=== PATIENT | female | born 1980 | race American Indian/Alaskan Native ===

== ENCOUNTER 2022-01-09 09:03 | Emergency (ER) | payer SELFPAY ==
[2022-01-09] MEDS ORDERED: SODIUM CHLORIDE 0.9% 1000 ML 1,000 ML IV ONE (09:50)
[2022-01-09] MEDS ORDERED: FAMOTIDINE 20 MG/2 ML INJ IV ONE (09:50)
[2022-01-09] MEDS ORDERED: ONDANSETRON 4 MG/2 ML INJ IV ONE (09:50)
[2022-01-09] MEDS ORDERED: diphenhydrAMINE 50 MG/ML VIAL IV ONE (09:51)
[2022-01-09] MEDS ORDERED: DICYCLOMINE 20 MG TAB PO ONE (09:51)
[2022-01-09 10:58] LABS: Basophils % (Auto) 0.6 % (0.0-1.8); Eosinophils # (Auto) 0.4 K/mm3 (0.0-0.4); Eosinophils % (Auto) 4.5 % (0.0-4.3); Hematocrit 33.9 % (30.3-42.9); Hemoglobin 10.4 gm/dl (10.1-14.3); Lymphocytes # (Auto) 0.9 K/mm3 (1.2-5.4); Lymphocytes % (Auto) 11.7 % (13.4-35.0); Mean Corpuscular HGB Conc 31 % (30-34); Mean Corpuscular Volume 82 fl (79-97); Monocytes # (Auto) 0.4 K/mm3 (0.0-0.8); Monocytes % (Auto) 4.5 % (0.0-7.3); Platelet Count 357 K/mm3 (140-440); Red Blood Count 4.15 M/mm3 (3.65-5.03)
[2022-01-09] MEDS ORDERED: hydrALAZINE 20 MG/1 ML INJ IV ONE (11:05)
[2022-01-09 11:07] LABS: Red Cell Distribution Width 23.3 % (13.2-15.2)
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
[2022-01-09 11:21] LABS: Bilirubin,Urine NEG (Negative); Blood,Urine SM (Negative); Color,Urine Yellow (Yellow); Urobilinogen,Urine < 2.0 mg/dL (<2.0)
[2022-01-09 11:34] LABS: Bacteria,Urine 1+ /HPF (Negative)
[2022-01-09 11:35] LABS: Protein,Urine >500 mg/dL (Negative)
[2022-01-09 11:41] LABS: Alanine Aminotransferase 22 units/L (7-56); Albumin 3.7 g/dL (3.9-5); BUN/Creatinine Ratio 37; Blood Urea Nitrogen 26 mg/dL (7-17); Calcium 8.7 mg/dL (8.4-10.2); Hemolysis Index 3
[2022-01-09] MEDS ORDERED: cloNIDine 0.2 MG TAB PO ONE (11:41)
--- NOTE | 2022-01-09 12:59 | Cat Scan Report ---
CT HEAD WITHOUT CONTRAST INDICATION / CLINICAL INFORMATION: headache with HTN. TECHNIQUE: All CT scans at this location are performed using CT dose reduction for ALARA by means of automated exposure control. COMPARISON: None available. FINDINGS: HEMORRHAGE: None. EXTRA-AXIAL SPACES: Normal in size and morphology for the patient's age. VENTRICULAR SYSTEM: Normal in size and morphology for the patient's age. CEREBRAL PARENCHYMA: No significant abnormality. No acute territorial infarct. MIDLINE SHIFT / HERNIATION: None. CEREBELLUM / BRAINSTEM: No significant abnormality. ORBITS: Normal as visualized SOFT TISSUES: No significant abnormality. SKULL: No significant abnormality. PARANASAL SINUSES / MASTOID AIR CELLS: There is opacification of the paranasal sinuses. ADDITIONAL FINDINGS: None. IMPRESSION: 1. No acute intracranial abnormality. Signer Name: Matti Aviles DO Signed: 01/09/2022 12:54 PM Workstation Name: [id number]
--- NOTE | 2022-01-09 13:11 | Cat Scan Report ---
CT CHEST WITHOUT CONTRAST INDICATION / CLINICAL INFORMATION: abnormal CT of abd. TECHNIQUE: Axial CT images were obtained through the chest without contrast. All CT scans at this loc ation are performed using CT dose reduction for ALARA by means of automated exposure control. COMPARISON: None available. FINDINGS: HEART: Cardiomegaly CORONARY ARTERY CALCIFICATION: None. THORACIC AORTA: No significant abnormality. MEDIASTINUM / SAMSON: No significant abnormality. PLEURA: There is a moderate right pleural effusion. No pneumothorax. LUNGS: There is prominence of the secondary lobules suggesting pulmonary edema. There is mild cephali zation of the pulmonary vasculature. There is atelectasis within the right lung bases. There are scat tered groundglass opacities, likely representing atelectasis versus pulmonary edema. ADDITIONAL FINDINGS: None. SKELETAL SYSTEM: Scattered degeneration. IMPRESSION: 1. Right pleural effusion, cardiomegaly and prominence of the interstitium suggesting cardiogenic pul monary edema. CT ABDOMEN AND PELVIS WITH CONTRAST INDICATION / CLINICAL INFORMATION: abnormal CT of abd. TECHNIQUE: Axial CT images were obtained through the abdomen and pelvis after 100 cc of Omnipaque [address] scans at this location are performed using CT dose reduction for ALARA by means of automated exposure control. COMPARISON: None available. FINDINGS: AORTA / ARTERIES: Moderate atherosclerotic calcification without acute abnormality. IVC / VEINS: No significant abnormality. LYMPH NODES: No significant adenopathy. COLON: No significant abnormality. APPENDIX: No significant abnormality. STOMACH / SMALL BOWEL: No significant abnormality. PERITONEUM: Small amount of free fluid throughout the abdomen. No free air. No fluid collection. LIVER: Along the peripheral right lateral lobe there is a nonmass-like area of decreased attenuation which either represents a focus of hepatic steatosis versus a transient hepatic attenuation differenc e. GALLBLADDER: No significant abnormality. BILE DUCTS: No significant abnormality. PANCREAS: No significant abnormality. SPLEEN: No significant abnormality. ADRENALS: No significant abnormality. RIGHT KIDNEY / URETER: No significant abnormality. LEFT KIDNEY / URETER: No significant abnormality. URINARY BLADDER: No significant abnormality. REPRODUCTIVE ORGANS: No significant abnormality. SKELETAL SYSTEM: Scattered degeneration ADDITIONAL FINDINGS: There is soft tissue edema scattered throughout the visualized soft tissues. IMPRESSION: 1. Small intrahepatic ascites with soft tissue edema throughout the visualized soft tissues as well a s right pleural effusion. This suggests anasarca. 2. Moderate calcific atherosclerosis given the patient's age. Please see above for CT of the chest. Signer Name: Matti Aviles DO Signed: 01/09/2022 1:07 PM Workstation Name: [id number]
[2022-01-09] MEDS ORDERED: NITROGLYCERIN 0.4 MG TAB SUBL SL ONE (13:15)
[2022-01-09] MEDS ORDERED: FUROSEMIDE 40 MG/4 ML INJ IV ONE (13:17)
[2022-01-09 14:56] VITALS: BP 142/90
== END 2022-01-09 14:56 | disposition home or self-care (01) ==
LOC: ED 09:03
DX: I10 Essential (primary) hypertension (principal); I50.9 Heart failure, unspecified; R10.9 Unspecified abdominal pain; R11.2 Nausea with vomiting, unspecified; E11.8 Type 2 diabetes mellitus with unspecified complications
CPT/HCPCS: 36415; 70450; 71250; 74177; 80053; 81001; 83690; 84703; 85025; 96361; 96374; 96375; 99284; J1200; J1940; J2405; J3490; J7030; Q9967; Q0162

== ENCOUNTER 2022-02-16 10:21 | Inpatient (IN) | payer SELFPAY ==
--- NOTE | 2022-02-16 10:51 | Event Note ---
ED Screening Note ED Screening Note: co sob (and neuropathy) pmh htn dm chf not immunized for covid meds creg lasox 70/30 lisinopril cant recall others This initial assessment/diagnostic orders/clinical plan/treatment(s) is/are subject to change based on patients health status, clinical progression and re- assessment by fellow clinical providers in the ED. Further treatment and workup at subsequent clinical providers discretion. Patient/guardian urged not to elope from the ED as their condition may be serious if not clinically assessed and managed. Initial orders include: ro acute chf exac/ uri
--- NOTE | 2022-02-16 11:13 | XRay Report ---
CHEST 2 VIEWS INDICATION / CLINICAL INFORMATION: sob. COMPARISON: CT chest without contrast from 01/09/2022 FINDINGS: SUPPORT DEVICES: None. HEART / MEDIASTINUM: Stable. LUNGS / PLEURA: There are nonspecific right middle/lower lobe opacities. The lungs are otherwise court r. No significant pleural effusion. No pneumothorax. ADDITIONAL FINDINGS: No significant additional findings. IMPRESSION: 1. Nonspecific right basilar opacities could represent atelectasis or pneumonia. 2. Stable cardiomegaly without other significant interval changes. Signer Name: Reji Worrell MD Signed: 02/16/2022 11:09 AM Workstation Name: [id number]
[2022-02-16 11:53] LABS: Alanine Aminotransferase 14 units/L (7-56); Albumin 3.3 g/dL (3.9-5); BUN/Creatinine Ratio 23; Blood Urea Nitrogen 23 mg/dL (7-17); Calcium 8.8 mg/dL (8.4-10.2); Hemolysis Index 8
[2022-02-16 12:10] LABS: Mean Corpuscular HGB Conc 32 % (30-34); Mean Corpuscular Volume 81 fl (79-97); Platelet Count 373 K/mm3 (140-440); Red Blood Count 3.48 M/mm3 (3.65-5.03); Red Cell Distribution Width 18.7 % (13.2-15.2)
[2022-02-16 12:20] LABS: ABG Base Excess -5.2 mmol/L (-2.0-3.0); ABG HCO3 18.5 mmol/L (20.0-26.0); ABG Methemoglobin 0.4 % (0.0-1.5); ABG Oxygen Saturation 97.6 % (95.0-99.0); ABG PCO2 29.9 mm Hg; ABG PH 7.408 pH Units (7.350-7.450); ABG PO2 96.5 mm Hg (80.0-90.0)
[2022-02-16 13:40] LABS: Bilirubin,Urine NEG (Negative); Blood,Urine NEG (Negative); Color,Urine Yellow (Yellow); Mucus,Urine FEW /HPF; Urobilinogen,Urine < 2.0 mg/dL (<2.0)
[2022-02-16 14:08] LABS: Protein,Urine >500 mg/dL (Negative)
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
[2022-02-16] MEDS ORDERED: oxyCODONE /ACETAMINOPHEN 5-325MG TAB PO PRN (17:48)
[2022-02-16] MEDS ORDERED: ONDANSETRON 4 MG/2 ML INJ IV PRN (17:48)
[2022-02-16] MEDS ORDERED: POTASSIUM CHLORIDE ER 20 MEQ TAB PO ONE (17:52)
[2022-02-16] MEDS: cefTRIAXone/NS 2 GM/100 ML 2 GM/100 ML BAG IV SCH (20:50)
[2022-02-16] MEDS: FUROSEMIDE 40 MG/4 ML INJ IV SCH (20:50)
[2022-02-16] MEDS: ACETAMINOPHEN 325 MG TAB PO PRN (20:55)
[2022-02-16] MEDS: LISINOPRIL 20 MG TAB PO SCH (23:13)
[2022-02-16] MEDS: HEPARIN 5,000 UNIT/1 ML VIAL SUB-Q SCH (23:14)
[2022-02-16] MEDS: FAMOTIDINE 20 MG TAB PO SCH (23:14)
[2022-02-16] MEDS: AZITHROMYCIN/NS 500 MG/250 ML 500 MG/250 ML BAG IV SCH (23:15)
[2022-02-16] MEDS ORDERED: traZODone 50 MG TAB PO ONE (23:40)
[2022-02-16] MEDS: ONDANSETRON 4 MG/2 ML INJ IV PRN (23:43)
[2022-02-17] MEDS: FUROSEMIDE 40 MG/4 ML INJ IV SCH ×2 (05:53→17:17)
[2022-02-17] MEDS: ACETAMINOPHEN 325 MG TAB PO PRN (07:41)
[2022-02-17] MEDS: INSULIN LISPRO 100 UNIT/ML SUB-Q SCH ×4 (08:01→21:48)
[2022-02-17] MEDS: MORPHINE 2 MG/1 ML INJ IV PRN ×2 (09:57→17:36)
[2022-02-17] MEDS: HEPARIN 5,000 UNIT/1 ML VIAL SUB-Q SCH ×2 (10:00→21:44)
[2022-02-17] MEDS: FAMOTIDINE 20 MG TAB PO SCH ×2 (10:01→21:44)
[2022-02-17] MEDS: LISINOPRIL 20 MG TAB PO SCH ×2 (10:01→21:44)
[2022-02-17] MEDS: cefTRIAXone/NS 2 GM/100 ML 2 GM/100 ML BAG IV SCH (10:01)
[2022-02-17] MEDS: SPIRONOLACTONE 25 MG TAB PO SCH (10:01)
--- NOTE | 2022-02-17 10:34 | Electrocardiograph Report ---
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
--- NOTE | 2022-02-17 13:35 | Progress Note ---
Assessment and Plan Assessment and plan: #Acute diastolic heart failure (newly diagnosed) - Continue CHF exacerbation protocol: Telemetry, Strict I/O, monitor urine output every shift, daily weights, afterload reduction, low-sodium diet, and fluid restriction of approximately 1.5 mL/day - Supplemental oxygen: None - ProBNP on admission: 1864 Continue IV Lasix 40 mg twice daily and Aldactone 25 mg daily - Cardiology consulted; pending recommendations - TTE (02/17/2022) revealing EF 50-55%, normal LV size, normal LV systolic function, mild concentric LVH, severe diastolic dysfunction, dilated RV, normal RV function, mildly dilated LA, normal RA, RSVP is 46 mmHg. - Continue to monitor #Possible right lower lobe pneumonia Low clinical suspicion for pneumonia. Chest x-ray remarkable for possible pneumonia versus atelectasis of lower lobes. Chest x-ray also revealing increased cardiac silhouette with increased interstitial markings consistent with pulmonary edema. Pending procalcitonin. Continue Rocephin 2 g daily and azithromycin 500 mg daily, but discontinue if procalcitonin is unremarkable. Coronavirus PCR pending. #Chronic uncontrolled hypertension - home medications: Coreg 25 mg twice daily, p.o. 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 Patient expresses understanding. - Time: +10 min #Advanced care planning -Disease education conducted, care plan discussed, diagnoses discussed, prognosis discussed, and patient acknowledges understanding with care plan -Time: +30 min Disposition Plan: Continue medical management Total Time Spent with Patient (Minutes): 45 minutes History Interval history: No acute events overnight. Hospitalist Physical - Constitutional Vitals: Temp Pulse Resp BP Pulse Ox 97.5 F L 74 18 150/63 96 02/17/22 07:59 02/17/22 07:59 02/17/22 07:59 02/17/22 07:59 02/17/22 07:59 General appearance: Present: no acute distress, well-nourished, other (Tearful during discussion) - EENT Eyes: Present: PERRL, EOM intact ENT: hearing intact, clear oral mucosa, dentition normal - Neck Neck: Present: supple, normal ROM - Respiratory Respiratory effort: normal Respiratory: bilateral: CTA - Cardiovascular Rhythm: regular Heart Sounds: Present: S1 & S2 - Extremities Extremities: pulses intact, pulses symmetrical, normal temperature, normal color, Full ROM Extremity abnormal: edema (1+ pitting edema bilateral lower extremities to mid marquis) Peripheral Pulses: within normal limits - Abdominal General gastrointestinal: soft, non-tender, non-distended, normal bowel sounds - Integumentary Integumentary: Present: clear, warm, dry - Psychiatric Psychiatric: appropriate mood/affect, memory intact, cooperative, other (Limited insight regarding need for lifestyle changes/dietary changes) - Neurologic Neurologic: CNII-XII intact, moves all extremities - Allied Health Allied health notes reviewed: nursing HEART Score - HEART Score Age: < 45 Risk factors: 1-2 risk factors Troponin: Troponin T < 0.010 ng/mL (0.00-0.029) 02/16/22 15:58 - Critical Actions Critical Actions: 4-6 pts:12-16.6% risk of adverse cardiac event. Should be admitted Results - Labs CBC & Chem 7: 02/16/22 11:09 02/16/22 11:09 Labs: Laboratory Last Values WBC 8.0 K/mm3 (4.5-11.0) 02/16/22 11:09 RBC 3.48 M/mm3 (3.65-5.03) L 02/16/22 11:09 Hgb 9.0 gm/dl (10.1-14.3) L 02/16/22 11:09 Hct 28.0 % (30.3-42.9) L 02/16/22 11:09 MCV 81 fl (79-97) 02/16/22 11:09 MCH 26 pg (28-32) L 02/16/22 11:09 MCHC 32 % (30-34) 02/16/22 11:09 RDW 18.7 % (13.2-15.2) H 02/16/22 11:09 Plt Count 373 K/mm3 (140-440) 02/16/22 11:09 Lymph % (Auto) Exchange Specialist 02/16/22 11:09 Sac % (Auto) Exchange Specialist 02/16/22 11:09 Eos % (Auto) Exchange Specialist 02/16/22 11:09 Baso % (Auto) Exchange Specialist 02/16/22 11:09 Lymph # (Auto) Exchange Specialist 02/16/22 11:09 Sac # (Auto) Exchange Specialist 02/16/22 11:09 Eos # (Auto) Exchange Specialist 02/16/22 11:09 Baso # (Auto) Exchange Specialist 02/16/22 11:09 Seg Neutrophils % Exchange Specialist 02/16/22 11:09 Seg Neutrophils # Exchange Specialist 02/16/22 11:09 ABG pH 7.408 pH Units (7.350-7.450) 02/16/22 12:06 ABG pCO2 29.9 mm Hg 02/16/22 12:06 ABG pO2 96.5 mm Hg (80.0-90.0) H 02/16/22 12:06 ABG HCO3 18.5 mmol/L (20.0-26.0) L 02/16/22 12:06 ABG O2 Saturation 97.6 % (95.0-99.0) 02/16/22 12:06 ABG O2 Content 14.1 (0.0-44) 02/16/22 12:06 ABG Base Excess -5.2 mmol/L (-2.0-3.0) L 02/16/22 12:06 ABG Hemoglobin 10.4 gm/dl (12.0-16.0) L 02/16/22 12:06 ABG Carboxyhemoglobin 1.7 % (0.0-5.0) 02/16/22 12:06 ABG Methemoglobin 0.4 % (0.0-1.5) 02/16/22 12:06 Oxyhemoglobin 95.5 % (95.0-99.0) 02/16/22 12:06 FiO2 21 % 02/16/22 12:06 Sodium 139 mmol/L (137-145) 02/16/22 11:09 Potassium 4.5 mmol/L (3.6-5.0) 02/16/22 11:09 Chloride 110.0 mmol/L (98-107) H 02/16/22 11:09 Carbon Dioxide 18 mmol/L (22-30) L 02/16/22 11:09 Anion Gap 16 mmol/L 02/16/22 11:09 BUN 23 mg/dL (7-17) H 02/16/22 11:09 Creatinine 1.0 mg/dL (0.6-1.2) 02/16/22 11:09 Estimated GFR > 60 ml/min 02/16/22 11:09 BUN/Creatinine Ratio 23 % 02/16/22 11:09 Glucose 113 mg/dL (65-100) H 02/16/22 11:09 POC Glucose 192 mg/dL (70-105) H 02/17/22 11:55 Calcium 8.8 mg/dL (8.4-10.2) 02/16/22 11:09 Total Bilirubin < 0.20 mg/dL (0.1-1.2) 02/16/22 11:09 AST 17 units/L (5-40) 02/16/22 11:09 ALT 14 units/L (7-56) 02/16/22 11:09 Alkaline Phosphatase 69 units/L (35-129) 02/16/22 11:09 Troponin T < 0.010 ng/mL (0.00-0.029) 02/16/22 15:58 NT-Pro-B Natriuret Pep 1865 pg/mL (0-450) H 02/16/22 11:09 Total Protein 7.4 g/dL (6.3-8.2) 02/16/22 11:09 Albumin 3.3 g/dL (3.9-5) L 02/16/22 11:09 Albumin/Globulin Ratio 0.8 % 02/16/22 11:09 Urine Color Yellow (Yellow) 02/16/22 13:20 Urine Turbidity Clear (Clear) 02/16/22 13:20 Urine pH 5.0 (5.0-7.0) 02/16/22 13:20 Ur Specific [place] 1.018 (1.003-1.030) 02/16/22 13:20 Urine Protein >500 mg/dL (Negative) 02/16/22 13:20 Urine Glucose (UA) Neg mg/dL (Negative) 02/16/22 13:20 Urine Ketones Neg mg/dL (Negative) 02/16/22 13:20 Urine Blood Neg (Negative) 02/16/22 13:20 Urine Nitrite Neg (Negative) 02/16/22 13:20 Urine Bilirubin Neg (Negative) 02/16/22 13:20 Urine Urobilinogen < 2.0 mg/dL (<2.0) 02/16/22 13:20 Ur Leukocyte Esterase Neg (Negative) 02/16/22 13:20 Urine WBC (Auto) 2.0 /HPF (0.0-6.0) 02/16/22 13:20 Urine RBC (Auto) 4.0 /HPF (0.0-6.0) 02/16/22 13:20 U Epithel Cells (Auto) 1.0 /HPF (0-13.0) 02/16/22 13:20 Urine Mucus Few /HPF 02/16/22 13:20 Mariee/IV: Voiding Method Toilet Active Medications - Current Medications Current Medications: Generic Name Dose Route Start Last Admin Trade Name Freq PRN Reason Stop Dose Admin Acetaminophen 650 mg 02/16/22 17:48 02/17/22 07:41 Acetaminophen 325 Mg Tab PO 650 mg Q4H PRN Administration Pain MILD(1-3)/Fever >100.5/LANDIS Famotidine 20 mg 02/16/22 22:00 02/17/22 10:01 Famotidine 20 Mg Tab PO 20 mg BID VIRAJ Administration Furosemide 40 mg 02/16/22 18:00 02/17/22 05:53 Furosemide 40 Mg/4 Ml Inj IV 40 mg 0600,1800 VIRAJ Administration Gabapentin 300 mg 02/17/22 14:00 Gabapentin 300 Mg Cap PO TID VIRAJ Heparin Sodium (Porcine) 5,000 unit 02/16/22 22:00 02/17/22 10:00 Heparin 5,000 Unit/1 Ml Vial SUB-Q 5,000 unit Q12HR VIRAJ Administration Azithromycin 500 mg in 250 mls @ 250 mls/hr 02/16/22 18:00 02/16/22 23:15 Zithromax/Ns IV 250 mls/hr Q24H VIRAJ Administration Ceftriaxone Sodium 2 gm in 100 mls @ 200 mls/hr 02/16/22 18:00 02/17/22 10:01 Rocephin/Ns 2 Gm/100 Ml IV 200 mls/hr Q24HR VIRAJ Administration Protocol Insulin Human Lispro 0 unit 02/17/22 07:30 02/17/22 08:01 Insulin Lispro 100 Unit/Ml SUB-Q 2 unit ACHS VIRAJ Administration Protocol Lisinopril 20 mg 02/16/22 22:00 02/17/22 10:01 Lisinopril 20 Mg Tab PO 20 mg BID VIRAJ Administration Metoclopramide HCl 10 mg 02/16/22 17:48 Metoclopramide 10 Mg/2 Ml Inj IV Q6H PRN Nausea And Vomiting Morphine Sulfate 2 mg 02/16/22 17:48 02/17/22 09:57 Morphine 2 Mg/1 Ml Inj IV 2 mg Q4H PRN Administration Pain, Moderate (4-6) Ondansetron HCl 4 mg 02/16/22 14:05 02/16/22 23:43 Ondansetron 4 Mg/2 Ml Inj IV 4 mg Q8H PRN Administration Nausea And Vomiting Oxycodone/Acetaminophen 1 tab 02/16/22 17:48 02/16/22 18:28 Oxycodone /Acetaminophen 5-325mg Tab PO 1 tab Q6H PRN Administration Pain, Moderate (4-6) Sodium Chloride 10 ml 02/16/22 22:00 02/17/22 10:01 Sodium Chloride 0.9% 10 Ml Flush Syringe IV 10 ml BID VIRAJ Administration Sodium Chloride 10 ml 02/16/22 14:05 Sodium Chloride 0.9% 10 Ml Flush Syringe IV PRN PRN LINE FLUSH Sodium Chloride 10 ml 02/16/22 22:00 02/16/22 23:15 Sodium Chloride 0.9% 10 Ml Flush Syringe IV 10 ml BID VIRAJ Administration Sodium Chloride 10 ml 02/16/22 17:48 Sodium Chloride 0.9% 10 Ml Flush Syringe IV PRN PRN LINE FLUSH Spironolactone 25 mg 02/17/22 10:00 02/17/22 10:01 Spironolactone 25 Mg Tab PO 25 mg QDAY VIRAJ Administration
[2022-02-17] MEDS: GABAPENTIN 300 MG CAP PO SCH ×2 (13:42→21:44)
--- NOTE | 2022-02-17 14:51 | Consultation ---
History of Present Illness Consult date: 02/17/22 Requesting physician: BEKA FORTUNE Consult reason: congestive heart failure History of present illness: Patient is a 41-year-old female with a past medical history of hypertension and diabetes who presented to the ED on 02/16/2022 for complaint of progressively worsening shortness of breath x2 weeks. Patient reports that over the last 2 weeks she has had worsening dyspnea on exertion, orthopnea, and PND. Patient denies any complaints of chest pain, diaphoresis, palpitations, or lightheadedness. Patient reports that normally she can walk around without any difficulties or feeling short of breath however that over the last 2 weeks she is unable to take more than a few steps without becoming short of breath at home. Patient reports that she has had improvement with the symptoms in the hospital when giving her Lasix. Of note patient found to have elevated BNP, and chest x-ray possible atelectasis or pneumonia. Patient is previously unknown to our practice. Cardiology is consulted for new onset heart failure Past History Past Medical History: diabetes, hypertension Past Surgical History: Other (Patient reports prior left arm surgery and prior gastric surgery) Social history: other (History of cocaine use) Family history: diabetes Medications and Allergies Allergies Allergy/AdvReac Type Severity Reaction Status Date / Time acetaminophen [From Lortab] Allergy Anaphylaxis Verified 01/09/22 09:21 hydrocodone [From Lortab] Allergy Anaphylaxis Verified 01/09/22 09:21 Home Medications Medication Instructions Recorded Confirmed Last Taken Type Furosemide [Lasix TAB] 40 mg PO QDAY #30 tablet 01/09/22 02/16/22 1 Day Ago Rx ~02/15/22 lisinopriL [Lisinopril] 20 mg PO BID #60 tab 01/09/22 02/16/22 1 Day Ago Rx ~02/15/22 Gabapentin 1 tab PO TID 02/16/22 02/16/22 1 Day Ago History ~02/15/22 HumuLIN 70/30 Kwikpen 15 unit SQ BID 02/16/22 02/16/22 1 Day Ago History ~02/15/22 carvediloL [Coreg] 25 mg PO BID 02/16/22 02/16/22 1 Day Ago History ~02/15/22 traZODone [Desyrel] 50 mg PO QHS 02/16/22 02/16/22 1 Day Ago History ~02/15/22 Active Meds: Active Medications Acetaminophen (Acetaminophen 325 Mg Tab) 650 mg PO Q4H PRN PRN Reason: Pain MILD(1-3)/Fever >100.5/LANDIS Last Admin: 02/17/22 07:41 Dose: 650 mg Famotidine (Famotidine 20 Mg Tab) 20 mg PO BID [facility] Last Admin: 02/17/22 10:01 Dose: 20 mg Furosemide (Furosemide 40 Mg/4 Ml Inj) 40 mg IV 0600,1800 [facility] Last Admin: 02/17/22 05:53 Dose: 40 mg Gabapentin (Gabapentin 300 Mg Cap) 300 mg PO TID [facility] Last Admin: 02/17/22 13:42 Dose: 300 mg Heparin Sodium (Porcine) (Heparin 5,000 Unit/1 Ml Vial) 5,000 unit SUB-Q Q12HR [facility] Last Admin: 02/17/22 10:00 Dose: 5,000 unit Azithromycin (Zithromax/Ns) 500 mg in 250 mls @ 250 mls/hr IV Q24H [facility] Last Admin: 02/16/22 23:15 Dose: 250 mls/hr Ceftriaxone Sodium (Rocephin/Ns 2 Gm/100 Ml) 2 gm in 100 mls @ 200 mls/hr IV Q24HR [facility]; Protocol Last Admin: 02/17/22 10:01 Dose: 200 mls/hr Insulin Human Lispro (Insulin Lispro 100 Unit/Ml) 0 unit SUB-Q ACHS [facility]; Protocol Last Admin: 02/17/22 11:42 Dose: 2 unit Lisinopril (Lisinopril 20 Mg Tab) 20 mg PO BID [facility] Last Admin: 02/17/22 10:01 Dose: 20 mg Metoclopramide HCl (Metoclopramide 10 Mg/2 Ml Inj) 10 mg IV Q6H PRN PRN Reason: Nausea And Vomiting Metoprolol Tartrate (Metoprolol Tartrate 25 Mg Tab) 12.5 mg PO BID [facility] Morphine Sulfate (Morphine 2 Mg/1 Ml Inj) 2 mg IV Q4H PRN PRN Reason: Pain, Moderate (4-6) Last Admin: 02/17/22 09:57 Dose: 2 mg Ondansetron HCl (Ondansetron 4 Mg/2 Ml Inj) 4 mg IV Q8H PRN PRN Reason: Nausea And Vomiting Last Admin: 02/16/22 23:43 Dose: 4 mg Oxycodone/Acetaminophen (Oxycodone /Acetaminophen 5-325mg Tab) 1 tab PO Q6H PRN PRN Reason: Pain, Moderate (4-6) Last Admin: 02/16/22 18:28 Dose: 1 tab Sodium Chloride (Sodium Chloride 0.9% 10 Ml Flush Syringe) 10 ml IV BID [facility] Last Admin: 02/17/22 10:01 Dose: 10 ml Sodium Chloride (Sodium Chloride 0.9% 10 Ml Flush Syringe) 10 ml IV PRN PRN PRN Reason: LINE FLUSH Sodium Chloride (Sodium Chloride 0.9% 10 Ml Flush Syringe) 10 ml IV BID [facility] Last Admin: 02/16/22 23:15 Dose: 10 ml Sodium Chloride (Sodium Chloride 0.9% 10 Ml Flush Syringe) 10 ml IV PRN PRN PRN Reason: LINE FLUSH Spironolactone (Spironolactone 25 Mg Tab) 25 mg PO QDAY [facility] Last Admin: 02/17/22 10:01 Dose: 25 mg Review of Systems Constitutional: no weight loss, no weight gain, no fever, no chills Ears, nose, mouth and throat: no sinus pressure, no sinus pain Cardiovascular: palpitations, shortness of breath, dyspnea on exertion, no chest pain, no rapid/irregular heart beat, no syncope Respiratory: shortness of breath, dyspnea on exertion Gastrointestinal: no abdominal pain, no nausea, no vomiting Musculoskeletal: no neck stiffness, no neck pain, no shooting arm pain Integumentary: no rash, no pruritis, no redness Neurological: no head injury, no transient paralysis Psychiatric: no anxiety, no memory loss Endocrine: no cold intolerance, no heat intolerance Hematologic/Lymphatic: no easy bruising, no easy bleeding Physical Examination Vital Signs Temp Pulse Resp BP Pulse Ox 97.5 F L 72 16 188/101 100 02/16/22 10:44 02/16/22 10:44 02/16/22 10:44 02/16/22 10:44 02/16/22 10:44 General appearance: no acute distress HEENT: Positive: PERRL Neck: Positive: trachea midline Cardiac: Positive: Reg Rate and Rhythm Lungs: Positive: Decreased Breath Sounds Neuro: Positive: Grossly Intact Abdomen: Positive: Soft, Active Bowel Sounds Skin: Positive: Other (Surgical scar left arm). Negative: Rash, Suspicious Lesions, Ulceration Extremities: Present: upper extr. pulses. Absent: edema Results 02/16/22 11:09 02/16/22 11:09 - Imaging and Cardiology Echo: report reviewed EKG interpretations - Telemetry EKG Rhythm: Sinus Rhythm - EKG Sinus rhythms and dysrhythmias: sinus rhythm Assessment and Plan Patient is a 41-year-old female with a past medical history of hypertension and diabetes who presented to the ED on 02/16/2022 for complaint of progressively worsening shortness of breath x2 weeks New onset HFpEF Cardiomyopathy Hypertension Diabetes Anemia Echo-02/16/2022- EF 50 to 55%. Mild concentric LVH. Severe diastolic dysfunction is present restrictive filling pattern. Right ventricle is dilated. Right ventricle systolic function is normal. Left atrium is mildly dilated. Mild to moderate mitral regurgitation Plan: EKG shows sinus rhythm 77 probable left atrial enlargement. Consider anterior infarct. No acute ischemic changes. Troponins negative x2. Patient denies any complaint of chest pain. AMI ruled out Patient currently on lisinopril 20 mg p.o. twice daily, and Aldactone 25 mg p.o. daily Agree with Lasix 40 mg IV twice daily for diuresis. Close monitoring of renal function repeat BMP in a.m. Strict I&O's Patient for stress test in the AM. N.p.o. after midnight Initiate metoprolol 12.5 mg p.o. twice daily (may titrate up as needed) Patient seen in conjunction with Dr. Zambrano who agrees with this plan of care - Patient Problems (1) Cardiomyopathy Current Visit: Yes Status: Acute (2) (HFpEF) heart failure with preserved ejection fraction Current Visit: Yes Status: Acute (3) Pneumonia Current Visit: Yes Status: Acute (4) Hypertension Current Visit: Yes Status: Chronic Qualifiers: Hypertension type: primary hypertension Qualified Code(s): I10 - Essential (primary) hypertension (5) T2DM (type 2 diabetes mellitus) Current Visit: Yes Status: Chronic Qualifiers: Diabetes mellitus group home insulin use: unspecified group home insulin use status
[2022-02-17] MEDS: AZITHROMYCIN/NS 500 MG/250 ML 500 MG/250 ML BAG IV SCH (17:18)
[2022-02-17 17:30] LABS: Basophils % (Auto) 0.7 % (0.0-1.8); Eosinophils # (Auto) 0.3 K/mm3 (0.0-0.4); Eosinophils % (Auto) 4.5 % (0.0-4.3); Hematocrit 23.8 % (30.3-42.9); Hemoglobin 7.7 gm/dl (10.1-14.3); Lymphocytes # (Auto) 0.8 K/mm3 (1.2-5.4); Lymphocytes % (Auto) 12.9 % (13.4-35.0); Mean Corpuscular HGB Conc 33 % (30-34); Mean Corpuscular Volume 79 fl (79-97); Monocytes # (Auto) 0.7 K/mm3 (0.0-0.8); Monocytes % (Auto) 10.7 % (0.0-7.3); Platelet Count 321 K/mm3 (140-440); Red Cell Distribution Width 18.1 % (13.2-15.2)
[2022-02-17] MEDS: ONDANSETRON 4 MG/2 ML INJ IV PRN (17:36)
[2022-02-17 17:58] LABS: Alanine Aminotransferase 8 units/L (7-56); Albumin 2.6 g/dL (3.9-5); BUN/Creatinine Ratio 16; Blood Urea Nitrogen 18 mg/dL (7-17); Calcium 8.2 mg/dL (8.4-10.2); Hemolysis Index 4
[2022-02-17] MEDS: METOCLOPRAMIDE 10 MG/2 ML INJ IV PRN (18:34)
[2022-02-17] MEDS: METOPROLOL TARTRATE 25 MG TAB PO SCH (21:45)
[2022-02-17] MEDS ORDERED: traZODone 50 MG TAB PO ONE (23:55)
[2022-02-18] MEDS: FUROSEMIDE 40 MG/4 ML INJ IV SCH (05:19)
[2022-02-18] MEDS: ACETAMINOPHEN 325 MG TAB PO PRN (05:20)
[2022-02-18 06:23] LABS: BUN/Creatinine Ratio 18; Blood Urea Nitrogen 20 mg/dL (7-17); Calcium 8.2 mg/dL (8.4-10.2); Hemolysis Index 35
[2022-02-18] MEDS: MORPHINE 2 MG/1 ML INJ IV PRN ×4 (06:36→21:59)
[2022-02-18] MEDS ORDERED: REGADENOSON 0.4 MG/5 ML INJ IV ONE (07:34)
[2022-02-18] MEDS: ONDANSETRON 4 MG/2 ML INJ IV PRN (08:50)
[2022-02-18] MEDS: FAMOTIDINE 20 MG TAB PO SCH ×2 (11:17→21:46)
[2022-02-18] MEDS: SPIRONOLACTONE 25 MG TAB PO SCH (11:17)
[2022-02-18] MEDS: GABAPENTIN 300 MG CAP PO SCH ×3 (11:17→21:45)
[2022-02-18] MEDS: METOPROLOL TARTRATE 25 MG TAB PO SCH ×3 (11:17→21:45)
[2022-02-18] MEDS: CALCIUM CARBONATE 1250 MG TAB PO SCH ×2 (11:18→21:46)
[2022-02-18] MEDS: LISINOPRIL 20 MG TAB PO SCH ×2 (11:18→21:46)
[2022-02-18] MEDS: cefTRIAXone/NS 2 GM/100 ML 2 GM/100 ML BAG IV SCH (11:18)
[2022-02-18] MEDS: HEPARIN 5,000 UNIT/1 ML VIAL SUB-Q SCH ×2 (11:18→21:46)
[2022-02-18] MEDS: INSULIN LISPRO 100 UNIT/ML SUB-Q SCH ×4 (11:21→22:20)
--- NOTE | 2022-02-18 11:38 | Nuclear Medicine Report ---
APPROVED REPORT Exam: Nuclear Stress Test Indication: [facility] pain [facility] #: [id number] Ht: 5 ft 7 in Wt: 242 lbs BSA: 2.19 m2 HR: 73 bpmBP: 184/89 mmHgBMI: 37.89 Rhythm: Sinus Rhythm Stress Test Details Stress Test: Pharmacologic stress testing performed using 0.4 mg of regadenoson per 5 mL given IV over 10 seconds. Reason for pharmacologic stress test: physical limitation. HR Resting HR: 72 bpm Max HR Achieved: 91 bpm Max Heart Rate (APMHR): 180 bpm Target HR (85% APMHR): 153 bpm % of APMHR: 50 Recovery HR: 77 bpm HR response to stress: Normal HR response to stress BP Resting BP: 163/83 mmHg Max BP: 184/102 mmHg Recovery BP: 171/84 mmHg BP response to stress: Abnormal hypertensive response to stress. ECG Resting ECG: Sinus Rhythm,wnl. Stress ECG: Sinus Rhythm ST Change: None Arrhythmia: None Recovery ECG: Sinus Rhythm Recovery ST Change: None Recovery Arrhythmia: None Clinical Reason for Termination: Completed protocol Stress Symptoms: None NM EXAM: Myocardial Perfusion REST/STRESS Imaging Protocol: Rest Tc-99m/Stress Tc-99m 1 day Resting Data Rest SPECT myocardial perfusion imaging was performed in supine position 45 minutes following the intravenous injection of 10 mCi of Tc-99m Myoview. Time of rest injection: 0730 Pharmacologic Stress Pharmacologic stress test was performed by injecting Regadenoson 0.4 mg IV push followed by the intravenous injection of 28 mCi of Tc-99m Myoview. Time of stress injection: 0950 Gated Stress SPECT was performed 30 minutes after stress injection. The images were gated to evaluate regional wall motion and calculate left ventricular ejection fraction. Study Quality Study: excellent Lung Uptake: Normal Study Data TID = 1.02. Perfusion Wall Motion The rest and stress images show normal left ventricular wall motion.Calculated post stress LVEF =50%. Nuclear Conclusion ECG Findings: negative for ischemia Clinical Findings: negative for ischemia Nuclear Findings: negative for ischemia Exercise Capacity: not assessed Left Ventricular Function: normal Risk Study: low Normal study. No scintigraphic evidence for myocardial ischemia or scar.
--- NOTE | 2022-02-18 12:26 | Progress Note ---
Assessment and Plan Patient is a 41-year-old female with a past medical history of hypertension and diabetes who presented to the ED on 02/16/2022 for complaint of progressively worsening shortness of breath x2 weeks New onset HFpEF Cardiomyopathy Hypertension Diabetes Anemia Echo-02/16/2022- EF 50 to 55%. Mild concentric LVH. Severe diastolic dysfunction is present restrictive filling pattern. Right ventricle is dilated. Right ventricle systolic function is normal. Left atrium is mildly dilated. Mild to moderate mitral regurgitation Lexiscan MPI stress test 02/18/2022-normal study with no scintigraphic evidence of myocardial ischemia or scar Plan: Patient had negative stress test this a.m. Patient appears near euvolemic on exam. Patient also reports significant improvement in respiratory status and decreased urine output. Will convert to Lasix p.o. Patient currently on lisinopril 20 mg p.o. twice daily, and Aldactone 25 mg p.o. daily Patient BP slightly elevated this a.m. will increase to metoprolol 25 mg p.o. twice daily Discussed importance of medication compliance and dietary restrictions with patient. Patient verbalized and acknowledged understanding Cardiac status otherwise stable Patient has a follow-up appointment with Dr. Zambrano, [facility] billing specialist, on 03/14/2022 at 1:30 PM in our [place] location. Phone #[phone] Patient seen in conjunction with Dr. 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 Patient reports improvement in respiratory status Sinus 70s on monitor with no event Objective Vital Signs Temp Pulse Resp BP Pulse Ox 02/18/22 09:55 176/84 02/18/22 09:53 181/83 02/18/22 09:51 171/85 02/18/22 09:50 163/102 02/18/22 09:48 176/93 02/18/22 08:55 184/89 02/18/22 07:58 98.3 F 71 16 144/71 95 02/18/22 04:06 98.9 F 75 16 132/60 94 02/18/22 00:00 98 02/17/22 23:18 98.6 F 74 16 114/51 98 02/17/22 21:45 80 141/65 02/17/22 21:44 80 141/85 02/17/22 19:20 98.8 F 80 20 141/65 96 02/17/22 15:49 98.4 F 77 18 146/64 98 - Physical Examination HEENT: Positive: PERRL Neck: Positive: trachea midline Cardiac: Positive: Reg Rate and Rhythm Lungs: Positive: Normal Breath Sounds Neuro: Positive: Grossly Intact Abdomen: Positive: Soft, Active Bowel Sounds Skin: Positive: Other (Surgical scar left arm). Negative: Rash, Suspicious Lesions, Ulceration Extremities: Present: upper extr. pulses. Absent: edema - Labs and Meds Cardiac Enzymes 02/17/22 Range/Units 16:44 AST 11 (5-40) units/L CBC 02/17/22 Range/Units 16:44 WBC 6.4 (4.5-11.0) K/mm3 RBC 3.00 L (3.65-5.03) M/mm3 Hgb 7.7 L (10.1-14.3) gm/dl Hct 23.8 L (30.3-42.9) % Plt Count 321 (140-440) K/mm3 Lymph # (Auto) 0.8 L (1.2-5.4) K/mm3 [place] # (Auto) 0.7 (0.0-0.8) K/mm3 Eos # (Auto) 0.3 (0.0-0.4) K/mm3 Baso # (Auto) 0.0 (0.0-0.1) K/mm3 Comprehensive Metabolic Panel 02/17/22 02/18/22 Range/Units 16:44 05:10 Sodium 136 L 138 (137-145) mmol/L Potassium 4.3 4.6 (3.6-5.0) mmol/L Chloride 106.8 108.9 H (98-107) mmol/L Carbon Dioxide 18 L 18 L (22-30) mmol/L BUN 18 H 20 H (7-17) mg/dL Creatinine 1.1 1.1 (0.6-1.2) mg/dL Glucose 61 L 144 H (65-100) mg/dL Calcium 8.2 L 8.2 L (8.4-10.2) mg/dL AST 11 (5-40) units/L ALT 8 (7-56) units/L Alkaline Phosphatase 55 (35-129) units/L Total Protein 6.1 L (6.3-8.2) g/dL Albumin 2.6 L (3.9-5) g/dL - Imaging and Cardiology EKG: report reviewed (Sinus rhythm no acute ST-T wave changes) Echo: report reviewed - Telemetry EKG Rhythm: Sinus Rhythm - EKG Sinus rhythms and dysrhythmias: sinus rhythm
[2022-02-18] MEDS: AZITHROMYCIN/NS 500 MG/250 ML 500 MG/250 ML BAG IV SCH (17:06)
[2022-02-18] MEDS ORDERED: SCOPOLAMINE TRANSDERMAL PATCH 72 HR TD SCH (19:29)
--- NOTE | 2022-02-18 19:39 | Progress Note ---
Assessment and Plan Assessment and plan: #Acute nonischemic diastolic heart failure (newly diagnosed) - Continue CHF exacerbation protocol: Telemetry, Strict I/O, monitor urine output every shift, daily weights, afterload reduction, low-sodium diet, and fluid restriction of approximately 1.5 mL/day - Supplemental oxygen: None - ProBNP on admission: 1864 Continue IV Lasix 40 mg twice daily and Aldactone 25 mg daily, metoprolol tartrate 25 mg twice daily - Cardiology consulted; appreciate recs - TTE (02/17/2022) revealing EF 50-55%, normal LV size, normal LV systolic function, mild concentric LVH, severe diastolic dysfunction, dilated RV, normal RV function, mildly dilated LA, normal RA, RSVP is 46 mmHg. Stress test unremarkable for ischemia - Continue to monitor #Possible right lower lobe pneumonia Low clinical suspicion for pneumonia. Chest x-ray remarkable for possible pneumonia versus atelectasis of lower lobes. Chest x-ray also revealing increased cardiac silhouette with increased interstitial markings consistent with pulmonary edema. Pending procalcitonin (have repeatedly ordered multiple times with no results). Continue Rocephin 2 g daily and azithromycin 500 mg daily, but discontinue if procalcitonin is unremarkable. Coronavirus PCR pending (unsure why it has not been collected). #Chronic uncontrolled hypertensioncontrolled - home medications: Coreg 25 mg twice daily, p.o. 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 Continue to monitor. #Chronic migrainesstable Continue to monitor #Morbid obesity #Weight loss counseling #Exercise counseling - BMI 38.0 - Counseled patient on the importance of weight loss, incorporating exercise, and dietary changes (lean meats, fresh fruits and vegetables, and water intake). Patient expresses understanding. - Time: +10 min #Advanced care planning -Disease education conducted, care plan discussed, diagnoses discussed, prognosis discussed, and patient acknowledges understanding with care plan -Time: +30 min Disposition Plan: Continue medical management Total Time Spent with Patient (Minutes): 45 minutes History Interval history: No acute events overnight. Hospitalist Physical - Constitutional Vitals: Temp Pulse Resp BP Pulse Ox 97.9 F 67 18 144/64 96 02/18/22 16:07 02/18/22 16:07 02/18/22 16:07 02/18/22 16:07 02/18/22 16:07 General appearance: Present: no acute distress, obese, other (Easily tearful) - EENT Eyes: Present: PERRL, EOM intact ENT: hearing intact, clear oral mucosa, dentition normal - Neck Neck: Present: supple, normal ROM - Respiratory Respiratory effort: normal Respiratory: bilateral: CTA - Cardiovascular Rhythm: regular - Extremities Extremities: no ischemia, pulses intact, pulses symmetrical, normal temperature, normal color Extremity abnormal: edema (1+ pitting edema bilateral lower extremities) Peripheral Pulses: within normal limits - Abdominal General gastrointestinal: soft, non-tender, non-distended, normal bowel sounds - Integumentary Integumentary: Present: clear, warm, dry - Psychiatric Psychiatric: appropriate mood/affect, memory intact, cooperative, other (Easily tearful) - Neurologic Neurologic: CNII-XII intact, moves all extremities - Allied Health Allied health notes reviewed: nursing HEART Score - HEART Score Age: < 45 Risk factors: 1-2 risk factors Troponin: Troponin T < 0.010 ng/mL (0.00-0.029) 02/16/22 15:58 - Critical Actions Critical Actions: 4-6 pts:12-16.6% risk of adverse cardiac event. Should be admitted Results - Labs CBC & Chem 7: 02/17/22 16:44 02/18/22 05:10 Labs: Laboratory Last Values WBC 6.4 K/mm3 (4.5-11.0) 02/17/22 16:44 RBC 3.00 M/mm3 (3.65-5.03) L 02/17/22 16:44 Hgb 7.7 gm/dl (10.1-14.3) L 02/17/22 16:44 Hct 23.8 % (30.3-42.9) L 02/17/22 16:44 MCV 79 fl (79-97) 02/17/22 16:44 MCH 26 pg (28-32) L 02/17/22 16:44 MCHC 33 % (30-34) 02/17/22 16:44 RDW 18.1 % (13.2-15.2) H 02/17/22 16:44 Plt Count 321 K/mm3 (140-440) 02/17/22 16:44 Lymph % (Auto) 12.9 % (13.4-35.0) L 02/17/22 16:44 [place] % (Auto) 10.7 % (0.0-7.3) H 02/17/22 16:44 Eos % (Auto) 4.5 % (0.0-4.3) H 02/17/22 16:44 Baso % (Auto) 0.7 % (0.0-1.8) 02/17/22 16:44 Lymph # (Auto) 0.8 K/mm3 (1.2-5.4) L 02/17/22 16:44 [place] # (Auto) 0.7 K/mm3 (0.0-0.8) 02/17/22 16:44 Eos # (Auto) 0.3 K/mm3 (0.0-0.4) 02/17/22 16:44 Baso # (Auto) 0.0 K/mm3 (0.0-0.1) 02/17/22 16:44 Seg Neutrophils % 71.2 % (40.0-70.0) H 02/17/22 16:44 Seg Neutrophils # 4.6 K/mm3 (1.8-7.7) 02/17/22 16:44 ABG pH 7.408 pH Units (7.350-7.450) 02/16/22 12:06 ABG pCO2 29.9 mm Hg 02/16/22 12:06 ABG pO2 96.5 mm Hg (80.0-90.0) H 02/16/22 12:06 ABG HCO3 18.5 mmol/L (20.0-26.0) L 02/16/22 12:06 ABG O2 Saturation 97.6 % (95.0-99.0) 02/16/22 12:06 ABG O2 Content 14.1 (0.0-44) 02/16/22 12:06 ABG Base Excess -5.2 mmol/L (-2.0-3.0) L 02/16/22 12:06 ABG Hemoglobin 10.4 gm/dl (12.0-16.0) L 02/16/22 12:06 ABG Carboxyhemoglobin 1.7 % (0.0-5.0) 02/16/22 12:06 ABG Methemoglobin 0.4 % (0.0-1.5) 02/16/22 12:06 Oxyhemoglobin 95.5 % (95.0-99.0) 02/16/22 12:06 FiO2 21 % 02/16/22 12:06 Sodium 138 mmol/L (137-145) 02/18/22 05:10 Potassium 4.6 mmol/L (3.6-5.0) 02/18/22 05:10 Chloride 108.9 mmol/L (98-107) H 02/18/22 05:10 Carbon Dioxide 18 mmol/L (22-30) L 02/18/22 05:10 Anion Gap 16 mmol/L 02/18/22 05:10 BUN 20 mg/dL (7-17) H 02/18/22 05:10 Creatinine 1.1 mg/dL (0.6-1.2) 02/18/22 05:10 Estimated GFR > 60 ml/min 02/18/22 05:10 BUN/Creatinine Ratio 18 % 02/18/22 05:10 Glucose 144 mg/dL (65-100) H 02/18/22 05:10 POC Glucose 211 mg/dL (70-105) H 02/18/22 16:05 Hemoglobin A1c 9.2 % (4-6) H 02/17/22 16:44 Calcium 8.2 mg/dL (8.4-10.2) L 02/18/22 05:10 Total Bilirubin < 0.20 mg/dL (0.1-1.2) 02/17/22 16:44 AST 11 units/L (5-40) 02/17/22 16:44 ALT 8 units/L (7-56) 02/17/22 16:44 Alkaline Phosphatase 55 units/L (35-129) 02/17/22 16:44 Troponin T < 0.010 ng/mL (0.00-0.029) 02/16/22 15:58 NT-Pro-B Natriuret Pep 1865 pg/mL (0-450) H 02/16/22 11:09 Total Protein 6.1 g/dL (6.3-8.2) L 02/17/22 16:44 Albumin 2.6 g/dL (3.9-5) L 02/17/22 16:44 Albumin/Globulin Ratio 0.7 % 02/17/22 16:44 Urine Color Yellow (Yellow) 02/16/22 13:20 Urine Turbidity Clear (Clear) 02/16/22 13:20 Urine pH 5.0 (5.0-7.0) 02/16/22 13:20 Ur Specific [place] 1.018 (1.003-1.030) 02/16/22 13:20 Urine Protein >500 mg/dL (Negative) 02/16/22 13:20 Urine Glucose (UA) Neg mg/dL (Negative) 02/16/22 13:20 Urine Ketones Neg mg/dL (Negative) 02/16/22 13:20 Urine Blood Neg (Negative) 02/16/22 13:20 Urine Nitrite Neg (Negative) 02/16/22 13:20 Urine Bilirubin Neg (Negative) 02/16/22 13:20 Urine Urobilinogen < 2.0 mg/dL (<2.0) 02/16/22 13:20 Ur Leukocyte Esterase Neg (Negative) 02/16/22 13:20 Urine WBC (Auto) 2.0 /HPF (0.0-6.0) 02/16/22 13:20 Urine RBC (Auto) 4.0 /HPF (0.0-6.0) 02/16/22 13:20 U Epithel Cells (Auto) 1.0 /HPF (0-13.0) 02/16/22 13:20 Urine Mucus Few /HPF 02/16/22 13:20 Mariee/IV: Voiding Method Toilet Active Medications - Current Medications Current Medications: Generic Name Dose Route Start Last Admin Trade Name Freq PRN Reason Stop Dose Admin Acetaminophen 650 mg 02/16/22 17:48 02/18/22 05:20 Acetaminophen 325 Mg Tab PO 650 mg Q4H PRN Administration Pain MILD(1-3)/Fever >100.5/LANDIS Calcium Carbonate/Glycine 1,250 mg 02/18/22 10:00 02/18/22 11:18 Calcium Carbonate 1250 Mg Tab PO 1,250 mg BID VIRAJ Administration Famotidine 20 mg 02/16/22 22:00 02/18/22 11:17 Famotidine 20 Mg Tab PO 20 mg BID VIRAJ Administration Furosemide 40 mg 02/19/22 10:00 Furosemide 40 Mg Tab PO QDAY VIRAJ Gabapentin 300 mg 02/17/22 14:00 02/18/22 16:00 Gabapentin 300 Mg Cap PO 300 mg TID VIRAJ Administration Heparin Sodium (Porcine) 5,000 unit 02/16/22 22:00 02/18/22 11:18 Heparin 5,000 Unit/1 Ml Vial SUB-Q 5,000 unit Q12HR [facility] Administration Azithromycin 500 mg in 250 mls @ 250 mls/hr 02/16/22 18:00 02/18/22 17:06 Zithromax/Ns IV Not Given Q24H [facility] Ceftriaxone Sodium 2 gm in 100 mls @ 200 mls/hr 02/16/22 18:00 02/18/22 11:18 Rocephin/Ns 2 Gm/100 Ml IV 200 mls/hr Q24HR [facility] Administration Protocol Insulin Human Lispro 0 unit 02/17/22 07:30 02/18/22 16:56 Insulin Lispro 100 Unit/Ml SUB-Q 3 unit ACHS [facility] Administration Protocol Lisinopril 20 mg 02/16/22 22:00 02/18/22 11:18 Lisinopril 20 Mg Tab PO 20 mg BID VIRAJ Administration Metoclopramide HCl 10 mg 02/16/22 17:48 02/17/22 18:34 Metoclopramide 10 Mg/2 Ml Inj IV 10 mg Q6H PRN Administration Nausea And Vomiting Metoprolol Tartrate 25 mg 02/18/22 13:00 02/18/22 12:51 Metoprolol Tartrate 25 Mg Tab PO 25 mg BID VIRAJ Administration Morphine Sulfate 2 mg 02/16/22 17:48 02/18/22 16:01 Morphine 2 Mg/1 Ml Inj IV 2 mg Q4H PRN Administration Pain, Moderate (4-6) Ondansetron HCl 4 mg 02/16/22 14:05 02/18/22 08:50 Ondansetron 4 Mg/2 Ml Inj IV 4 mg Q8H PRN Administration Nausea And Vomiting Oxycodone/Acetaminophen 1 tab 02/16/22 17:48 02/16/22 18:28 Oxycodone /Acetaminophen 5-325mg Tab PO 1 tab Q6H PRN Administration Pain, Moderate (4-6) Scopolamine 1 each 02/18/22 19:29 Scopolamine Transdermal Patch 72 Hr TD Q3D VIRAJ Sodium Chloride 10 ml 02/16/22 22:00 02/18/22 11:18 Sodium Chloride 0.9% 10 Ml Flush Syringe IV 10 ml BID VIRAJ Administration Sodium Chloride 10 ml 02/16/22 17:48 Sodium Chloride 0.9% 10 Ml Flush Syringe IV PRN PRN LINE FLUSH Spironolactone 25 mg 02/17/22 10:00 02/18/22 11:17 Spironolactone 25 Mg Tab PO 25 mg QDAY VIRAJ Administration Nutrition/Malnutrition Assess - Dietary Evaluation Nutrition/Malnutrition Findings: Nutrition Notes Start: 02/18/22 14:07 Freq: Status: Active Protocol: Document 02/18/22 14:07 ZAIDA (Rec: 02/18/22 14:33 ZAIDA [id number]) Nutrition Notes Need for Assessment generated from: MD Order Initial or Follow up Assessment Current Diagnosis Diabetes,Hypertension Other Pertinent Diagnosis Pneumonia, CHF, SOB, Seizures. Current Diet Cardiac/Consistent Carbohydrates Diet (from D ). Labs/Tests 02/18: Cl 108.9, CO2 18, BUN 20, Glu 144, Ca 8.2, HbA1c 9.2 . Pertinent Medications 02/18: Humalog 1 U, others nutritionally unremarkable. Height 5 ft 7 in Weight 110 kg [place] Body Weight (kg) 61.36 BMI 38.0 Intake Prior to Admission Good Weight change and time frame Pt denies having loss body weight [employer]. Weight Status Obese Subjective/Other Information RD consult for dietary assessment. Pt currently on NPO, but will start PO at diner tonigt, will assess PO intake of meals at F/U. Dietary supplements are not justified at the time, I will not procede to order those, will assess ONS need at F/U. Pt on room air, O2 saturation @ 98%, according to Physical Assessment History notes. Pt has missing teeth, according to Physical Assessment History notes. Pt presents symptoms of NYHA class III, according to Progress notes. Percent of energy/protein needs met: Prescribed Cardiac/Consistent Carbohydrates Diet provides for energy/protein needs (1, 977 Kcal/86 g) during LOS. Burn Absent Trauma Absent GI Symptoms None Food Allergy No Skin Integrity/Comment Assessment WNL. Current % PO Other Minimum of two criteria No #1 Nutrition Diagnosis No nutrition diagnosis at this time Comments: Will assess Pt's PO intake of meals and the need for ONS at F/U. Is patient on ventilator? No Is Patient Ambulatory and/or Out of Bed Yes REE-(Ross-St. Jeor-ambulatory/OOB) [ 2343.419 NUTR.[id number]] Kcal/Kg value to use for calculation 16 Approximate Energy Requirements Using 1760 kcal/Kg Calculation Used for Recommendations Kcal/kg Additional Notes Protein: 0.8-1 g/Kg AdjBW; 69- 86 g/day. Fluids: 1 ml/Kcal, or as per MD. Nutrition Intervention Follow-Up By: 02/25/22 Additional Comments Start monitoring food tolerance, %PO intake of meals , and BM.
--- NOTE | 2022-02-18 19:40 | Progress Note ---
Assessment and Plan Assessment and plan: #Acute nonischemic diastolic heart failure (newly diagnosed) - Continue CHF exacerbation protocol: Telemetry, Strict I/O, monitor urine output every shift, daily weights, afterload reduction, low-sodium diet, and fluid restriction of approximately 1.5 mL/day - Supplemental oxygen: None - ProBNP on admission: 1864 Continue Aldactone 25 mg daily and metoprolol tartrate 25 mg twice daily. Transitioning IV Lasix to p.o. 40 mg twice daily. - Cardiology consulted; appreciate recs - TTE (02/17/2022) revealing EF 50-55%, normal LV size, normal LV systolic function, mild concentric LVH, severe diastolic dysfunction, dilated RV, normal RV function, mildly dilated LA, normal RA, RSVP is 46 mmHg. Stress test unremarkable for ischemia - Continue to monitor #Possible right lower lobe pneumoniaruled out Low clinical suspicion for pneumonia. Chest x-ray remarkable for possible pneumonia versus atelectasis of lower lobes. Chest x-ray also revealing increased cardiac silhouette with increased interstitial markings consistent with pulmonary edema. Pending procalcitonin (have repeatedly ordered multiple times with no results). Discontinued Rocephin 2 g daily and azithromycin 500 mg daily. Coronavirus PCR pending (unsure why it has not been collected). #Chronic uncontrolled hypertensioncontrolled - home medications: Coreg 25 mg twice daily, p.o. 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 Continue to monitor. #Chronic migrainesstable Continue to monitor #Severe protein caloric malnutrition Albumin 2.6 Consulting nutrition; pending recs. Starting dietary supplements. #Morbid obesity #Weight loss counseling #Exercise counseling - BMI 38.0 - Counseled patient on the importance of weight loss, incorporating exercise, and dietary changes (lean meats, fresh fruits and vegetables, and water intake). Patient expresses understanding. - Time: +10 min #Advanced care planning -Disease education conducted, care plan discussed, diagnoses discussed, prognosis discussed, and patient acknowledges understanding with care plan -Time: +30 min #Discharge planning - Case management has been made aware. - Discharge is tentatively tomorrow Disposition Plan: Pending discharge home Total Time Spent with Patient (Minutes): 45 minutes History Interval history: No acute events overnight. Hospitalist Physical - Constitutional Vitals: Temp Pulse Resp BP Pulse Ox 97.9 F 67 18 144/64 96 02/18/22 16:07 02/18/22 16:07 02/18/22 16:07 02/18/22 16:07 02/18/22 16:07 General appearance: Present: no acute distress, obese - EENT Eyes: Present: PERRL, EOM intact ENT: hearing intact, clear oral mucosa - Neck Neck: Present: supple, normal ROM - Respiratory Respiratory effort: normal Respiratory: bilateral: CTA - Cardiovascular Rhythm: regular Heart Sounds: Present: S1 & S2 - Extremities Extremities: no ischemia, pulses intact, pulses symmetrical, normal temperature, normal color, Full ROM Extremity abnormal: edema (Trace edema bilateral lower extremities) Peripheral Pulses: within normal limits - Abdominal General gastrointestinal: soft, non-tender, non-distended, normal bowel sounds - Integumentary Integumentary: Present: clear, warm, dry - Psychiatric Psychiatric: appropriate mood/affect, intact judgment & insight, memory intact, cooperative - Neurologic Neurologic: CNII-XII intact, moves all extremities - Allied Health Allied health notes reviewed: nursing HEART Score - HEART Score Age: < 45 Risk factors: 1-2 risk factors Troponin: Troponin T < 0.010 ng/mL (0.00-0.029) 02/16/22 15:58 - Critical Actions Critical Actions: 4-6 pts:12-16.6% risk of adverse cardiac event. Should be admitted Results - Labs CBC & Chem 7: 02/19/22 05:33 02/19/22 05:33 Labs: Laboratory Last Values WBC 6.4 K/mm3 (4.5-11.0) 02/17/22 16:44 RBC 3.00 M/mm3 (3.65-5.03) L 02/17/22 16:44 Hgb 7.7 gm/dl (10.1-14.3) L 02/17/22 16:44 Hct 23.8 % (30.3-42.9) L 02/17/22 16:44 MCV 79 fl (79-97) 02/17/22 16:44 MCH 26 pg (28-32) L 02/17/22 16:44 MCHC 33 % (30-34) 02/17/22 16:44 RDW 18.1 % (13.2-15.2) H 02/17/22 16:44 Plt Count 321 K/mm3 (140-440) 02/17/22 16:44 Lymph % (Auto) 12.9 % (13.4-35.0) L 02/17/22 16:44 [place] % (Auto) 10.7 % (0.0-7.3) H 02/17/22 16:44 Eos % (Auto) 4.5 % (0.0-4.3) H 02/17/22 16:44 Baso % (Auto) 0.7 % (0.0-1.8) 02/17/22 16:44 Lymph # (Auto) 0.8 K/mm3 (1.2-5.4) L 02/17/22 16:44 [place] # (Auto) 0.7 K/mm3 (0.0-0.8) 02/17/22 16:44 Eos # (Auto) 0.3 K/mm3 (0.0-0.4) 02/17/22 16:44 Baso # (Auto) 0.0 K/mm3 (0.0-0.1) 02/17/22 16:44 Seg Neutrophils % 71.2 % (40.0-70.0) H 02/17/22 16:44 Seg Neutrophils # 4.6 K/mm3 (1.8-7.7) 02/17/22 16:44 ABG pH 7.408 pH Units (7.350-7.450) 02/16/22 12:06 ABG pCO2 29.9 mm Hg 02/16/22 12:06 ABG pO2 96.5 mm Hg (80.0-90.0) H 02/16/22 12:06 ABG HCO3 18.5 mmol/L (20.0-26.0) L 02/16/22 12:06 ABG O2 Saturation 97.6 % (95.0-99.0) 02/16/22 12:06 ABG O2 Content 14.1 (0.0-44) 02/16/22 12:06 ABG Base Excess -5.2 mmol/L (-2.0-3.0) L 02/16/22 12:06 ABG Hemoglobin 10.4 gm/dl (12.0-16.0) L 02/16/22 12:06 ABG Carboxyhemoglobin 1.7 % (0.0-5.0) 02/16/22 12:06 ABG Methemoglobin 0.4 % (0.0-1.5) 02/16/22 12:06 Oxyhemoglobin 95.5 % (95.0-99.0) 02/16/22 12:06 FiO2 21 % 02/16/22 12:06 Sodium 138 mmol/L (137-145) 02/18/22 05:10 Potassium 4.6 mmol/L (3.6-5.0) 02/18/22 05:10 Chloride 108.9 mmol/L (98-107) H 02/18/22 05:10 Carbon Dioxide 18 mmol/L (22-30) L 02/18/22 05:10 Anion Gap 16 mmol/L 02/18/22 05:10 BUN 20 mg/dL (7-17) H 02/18/22 05:10 Creatinine 1.1 mg/dL (0.6-1.2) 02/18/22 05:10 Estimated GFR > 60 ml/min 02/18/22 05:10 BUN/Creatinine Ratio 18 % 02/18/22 05:10 Glucose 144 mg/dL (65-100) H 02/18/22 05:10 POC Glucose 211 mg/dL (70-105) H 02/18/22 16:05 Hemoglobin A1c 9.2 % (4-6) H 02/17/22 16:44 Calcium 8.2 mg/dL (8.4-10.2) L 02/18/22 05:10 Total Bilirubin < 0.20 mg/dL (0.1-1.2) 02/17/22 16:44 AST 11 units/L (5-40) 02/17/22 16:44 ALT 8 units/L (7-56) 02/17/22 16:44 Alkaline Phosphatase 55 units/L (35-129) 02/17/22 16:44 Troponin T < 0.010 ng/mL (0.00-0.029) 02/16/22 15:58 NT-Pro-B Natriuret Pep 1865 pg/mL (0-450) H 02/16/22 11:09 Total Protein 6.1 g/dL (6.3-8.2) L 02/17/22 16:44 Albumin 2.6 g/dL (3.9-5) L 02/17/22 16:44 Albumin/Globulin Ratio 0.7 % 02/17/22 16:44 Urine Color Yellow (Yellow) 02/16/22 13:20 Urine Turbidity Clear (Clear) 02/16/22 13:20 Urine pH 5.0 (5.0-7.0) 02/16/22 13:20 Ur Specific [place] 1.018 (1.003-1.030) 02/16/22 13:20 Urine Protein >500 mg/dL (Negative) 02/16/22 13:20 Urine Glucose (UA) Neg mg/dL (Negative) 02/16/22 13:20 Urine Ketones Neg mg/dL (Negative) 02/16/22 13:20 Urine Blood Neg (Negative) 02/16/22 13:20 Urine Nitrite Neg (Negative) 02/16/22 13:20 Urine Bilirubin Neg (Negative) 02/16/22 13:20 Urine Urobilinogen < 2.0 mg/dL (<2.0) 02/16/22 13:20 Ur Leukocyte Esterase Neg (Negative) 02/16/22 13:20 Urine WBC (Auto) 2.0 /HPF (0.0-6.0) 02/16/22 13:20 Urine RBC (Auto) 4.0 /HPF (0.0-6.0) 02/16/22 13:20 U Epithel Cells (Auto) 1.0 /HPF (0-13.0) 02/16/22 13:20 Urine Mucus Few /HPF 02/16/22 13:20 Mariee/IV: Voiding Method Toilet Active Medications - Current Medications Current Medications: Generic Name Dose Route Start Last Admin Trade Name Freq PRN Reason Stop Dose Admin Acetaminophen 650 mg 02/16/22 17:48 02/18/22 05:20 Acetaminophen 325 Mg Tab PO 650 mg Q4H PRN Administration Pain MILD(1-3)/Fever >100.5/LANDIS Calcium Carbonate/Glycine 1,250 mg 02/18/22 10:00 02/18/22 11:18 Calcium Carbonate 1250 Mg Tab PO 1,250 mg BID VIRAJ Administration Famotidine 20 mg 02/16/22 22:00 02/18/22 11:17 Famotidine 20 Mg Tab PO 20 mg BID VIRAJ Administration Furosemide 40 mg 02/19/22 10:00 Furosemide 40 Mg Tab PO QDAY VIRAJ Gabapentin 300 mg 02/17/22 14:00 02/18/22 16:00 Gabapentin 300 Mg Cap PO 300 mg TID VIRAJ Administration Heparin Sodium (Porcine) 5,000 unit 02/16/22 22:00 02/18/22 11:18 Heparin 5,000 Unit/1 Ml Vial SUB-Q 5,000 unit Q12HR VIRAJ Administration Azithromycin 500 mg in 250 mls @ 250 mls/hr 02/16/22 18:00 02/18/22 17:06 Zithromax/Ns IV Not Given Q24H VIRAJ Ceftriaxone Sodium 2 gm in 100 mls @ 200 mls/hr 02/16/22 18:00 02/18/22 11:18 Rocephin/Ns 2 Gm/100 Ml IV 200 mls/hr Q24HR VIRAJ Administration Protocol Insulin Human Lispro 0 unit 02/17/22 07:30 02/18/22 16:56 Insulin Lispro 100 Unit/Ml SUB-Q 3 unit ACHS VIRAJ Administration Protocol Lisinopril 20 mg 02/16/22 22:00 02/18/22 11:18 Lisinopril 20 Mg Tab PO 20 mg BID VIRAJ Administration Metoclopramide HCl 10 mg 02/16/22 17:48 02/17/22 18:34 Metoclopramide 10 Mg/2 Ml Inj IV 10 mg Q6H PRN Administration Nausea And Vomiting Metoprolol Tartrate 25 mg 02/18/22 13:00 02/18/22 12:51 Metoprolol Tartrate 25 Mg Tab PO 25 mg BID VIRAJ Administration Morphine Sulfate 2 mg 02/16/22 17:48 02/18/22 16:01 Morphine 2 Mg/1 Ml Inj IV 2 mg Q4H PRN Administration Pain, Moderate (4-6) Ondansetron HCl 4 mg 02/16/22 14:05 02/18/22 08:50 Ondansetron 4 Mg/2 Ml Inj IV 4 mg Q8H PRN Administration Nausea And Vomiting Oxycodone/Acetaminophen 1 tab 02/16/22 17:48 02/16/22 18:28 Oxycodone /Acetaminophen 5-325mg Tab PO 1 tab Q6H PRN Administration Pain, Moderate (4-6) Scopolamine 1 each 02/18/22 19:29 Scopolamine Transdermal Patch 72 Hr TD Q3D VIRAJ Sodium Chloride 10 ml 02/16/22 22:00 02/18/22 11:18 Sodium Chloride 0.9% 10 Ml Flush Syringe IV 10 ml BID VIRAJ Administration Sodium Chloride 10 ml 02/16/22 17:48 Sodium Chloride 0.9% 10 Ml Flush Syringe IV PRN PRN LINE FLUSH Spironolactone 25 mg 02/17/22 10:00 02/18/22 11:17 Spironolactone 25 Mg Tab PO 25 mg QDAY VIRAJ Administration Nutrition/Malnutrition Assess - Dietary Evaluation Nutrition/Malnutrition Findings: Nutrition Notes Start: 02/18/22 14:07 Freq: Status: Active Protocol: Document 02/18/22 14:07 ZAIDA (Rec: 02/18/22 14:33 ZAIDA [id number]) Nutrition Notes Need for Assessment generated from: MD Order Initial or Follow up Assessment Current Diagnosis Diabetes,Hypertension Other Pertinent Diagnosis Pneumonia, CHF, SOB, Seizures. Current Diet Cardiac/Consistent Carbohydrates Diet (from D ). Labs/Tests 02/18: Cl 108.9, CO2 18, BUN 20, Glu 144, Ca 8.2, HbA1c 9.2 . Pertinent Medications 02/18: Humalog 1 U, others nutritionally unremarkable. 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 Weight Status Obese Subjective/Other Information RD consult for dietary assessment. Pt currently on NPO, but will start PO at diner tonigt, will assess PO intake of meals at F/U. Dietary supplements are not justified at the time, I will not procede to order those, will assess ONS need at F/U. Pt on room air, O2 saturation @ 98%, according to Physical Assessment History notes. Pt has missing teeth, according to Physical Assessment History notes. Pt presents symptoms of NYHA class III, according to Progress notes. Percent of energy/protein needs met: Prescribed Cardiac/Consistent Carbohydrates Diet provides for energy/protein needs (1, 977 Kcal/86 g) during LOS. Burn Absent Trauma Absent GI Symptoms None Food Allergy No Skin Integrity/Comment Assessment WNL. Current % PO Other Minimum of two criteria No #1 Nutrition Diagnosis No nutrition diagnosis at this time Comments: Will assess Pt's PO intake of meals and the need for ONS at F/U. Is patient on ventilator? No Is Patient Ambulatory and/or Out of Bed Yes REE-([place]-St. Jeor-ambulatory/OOB) [ 2343.419 NUTR.MSJOOB] Kcal/Kg value to use for calculation 16 Approximate Energy Requirements Using 1760 kcal/Kg Calculation Used for Recommendations Kcal/kg Additional Notes Protein: 0.8-1 g/Kg AdjBW; 69- 86 g/day. Fluids: 1 ml/Kcal, or as per MD. Nutrition Intervention Follow-Up By: 02/25/22 Additional Comments Start monitoring food tolerance, %PO intake of meals , and BM.
[2022-02-18] MEDS: traZODone 50 MG TAB PO SCH (22:20)
[2022-02-19] MEDS: MORPHINE 2 MG/1 ML INJ IV PRN ×3 (04:48→21:42)
[2022-02-19 06:19] LABS: Hematocrit 23.7 % (30.3-42.9); Hemoglobin 7.4 gm/dl (10.1-14.3)
[2022-02-19 06:27] LABS: BUN/Creatinine Ratio 18; Blood Urea Nitrogen 20 mg/dL (7-17); Calcium 8.5 mg/dL (8.4-10.2); Hemolysis Index 1
[2022-02-19] MEDS: METOCLOPRAMIDE 10 MG/2 ML INJ IV PRN (08:56)
[2022-02-19] MEDS ORDERED: metFORMIN 500 MG TAB PO SCH (09:00)
[2022-02-19] MEDS: INSULIN LISPRO 100 UNIT/ML SUB-Q SCH ×4 (10:20→21:42)
[2022-02-19] MEDS: SPIRONOLACTONE 25 MG TAB PO SCH (10:21)
[2022-02-19] MEDS: GABAPENTIN 300 MG CAP PO SCH ×3 (10:21→21:41)
[2022-02-19] MEDS: FUROSEMIDE 40 MG TAB PO SCH (10:21)
[2022-02-19] MEDS: CALCIUM CARBONATE 1250 MG TAB PO SCH ×2 (10:21→21:41)
[2022-02-19] MEDS: LISINOPRIL 20 MG TAB PO SCH ×2 (10:22→21:41)
[2022-02-19] MEDS: FAMOTIDINE 20 MG TAB PO SCH ×2 (10:22→21:41)
[2022-02-19] MEDS: METOPROLOL TARTRATE 25 MG TAB PO SCH ×2 (10:22→21:41)
[2022-02-19] MEDS: HEPARIN 5,000 UNIT/1 ML VIAL SUB-Q SCH ×2 (10:23→21:41)
[2022-02-19] MEDS ORDERED: DEXTROSE 50% IN WATER (25GM) 50 ML SYRINGE IV PRN (11:43)
--- NOTE | 2022-02-19 12:15 | Cat Scan Report ---
CT SINUS WITH AND WITHOUT CONTRAST INDICATION / CLINICAL INFORMATION: sinus obstruction or structural abnormality. TECHNIQUE: All CT scans at this location are performed using CT dose reduction for ALARA by means of automated exposure control. Pre and postcontrast images of the sinuses were obtained. 100 cc of Omni 350 administered intravenously COMPARISON: None available. FINDINGS: There is moderate mucosal thickening in the maxillary sinuses and ethmoid air cells. No air-fluid lev els. There are possible erosive/perforation changes of the inferior nasal septum with leftward deviat ion. There is hypertrophy of the inferior turbinates. The bilateral ostiomeatal units are patent. No abnormal enhancement. Suspected chronic nasal bone fractures. The orbits appear normal. Multiple dental caries are noted. IMPRESSION: 1. Moderate mucosal thickening in the maxillary sinuses and ethmoid air cells. No air-fluid levels. 2. Possible erosive/perforation changes of the inferior nasal septum with hypertrophy of the turbinat es. This appearance could be postoperative but clinical correlation is recommended. Signer Name: Rafi Connelly MD Signed: 02/19/2022 12:11 PM Workstation Name: [id number]
[2022-02-19] MEDS: INSULIN NPH, HUMAN 100 UNIT/1 ML SUB-Q SCH (17:13)
--- NOTE | 2022-02-19 17:36 | Progress Note ---
Assessment and Plan Acute HFpEF Anemia/Epistaxis Hypertension Diabetes Obesity Chronic Migraines Echo 02/16/2022 - EF 50 to 55%. Mild concentric LVH. Severe diastolic dysfunction is present, restrictive filling pattern. Right ventricle is dilated. Right ventricle systolic function is normal. Left atrium is mildly dilated. Mild to moderate mitral regurgitation. Lexiscan MPI stress test 02/18/2022 - normal study with no evidence of myocardial ischemia or scar. Plan: May increase Lopressor to 50mg BID if needed for BP optimization. Continue PO Lasix 40mg daily, Aldactone 25mg daily, and Lisinopril 20mg BID. Cardiac status remains otherwise stable. No objection to discharge from a Cardiology standpoint. Follow-up with Dr. Zambrano on 03/14/2022 @ 1:30pm ([phone]). Pt seen in conjunction with Dr. Zambrano, who agrees with the assessment and plan of care. - Patient Problems (1) (HFpEF) heart failure with preserved ejection fraction Current Visit: Yes Status: Acute Subjective Date of service: 02/19/22 Principal diagnosis: Acute HFpEF Interval history: C/o headache. States she wants to go home tomorrow instead of today. No cardiac complaints. Objective Vital Signs Temp Pulse Pulse Resp BP BP Pulse Ox 02/19/22 16:00 62 02/19/22 15:37 98.2 F 65 18 149/74 98 02/19/22 12:00 64 18 96 02/19/22 11:05 98.4 F 69 18 165/83 97 02/19/22 08:00 64 02/19/22 07:52 98.9 F 67 18 145/62 99 02/19/22 04:21 98.5 F 66 20 124/63 97 02/19/22 00:00 98 02/18/22 23:00 98.9 F 70 132/65 96 02/18/22 21:45 67 144/64 02/18/22 19:25 63 - Physical Examination General: No Apparent Distress HEENT: Positive: EOMI, Normocephaly Neck: Positive: neck supple, trachea midline. Negative: JVD/HJR Cardiac: Positive: Reg Rate and Rhythm, S1/S2 Lungs: Positive: clear to auscultation Neuro: Positive: Grossly Intact Abdomen: Positive: Soft Skin: Positive: Other (Surgical scar left arm). Negative: Rash Extremities: Present: lower extr. pulses. Absent: edema - Labs and Meds CBC 02/19/22 Range/Units 05:33 Hgb 7.4 L (10.1-14.3) gm/dl Hct 23.7 L (30.3-42.9) % Comprehensive Metabolic Panel 02/19/22 Range/Units 05:33 Sodium 137 (137-145) mmol/L Potassium 4.2 (3.6-5.0) mmol/L Chloride 106.6 (98-107) mmol/L Carbon Dioxide 21 L (22-30) mmol/L BUN 20 H (7-17) mg/dL Creatinine 1.1 (0.6-1.2) mg/dL Glucose 220 H (65-100) mg/dL Calcium 8.5 (8.4-10.2) mg/dL - Imaging and Cardiology EKG: report reviewed, image reviewed Echo: report reviewed - Telemetry EKG Rhythm: Sinus Rhythm - EKG Sinus rhythms and dysrhythmias: sinus rhythm
[2022-02-19] MEDS: traZODone 50 MG TAB PO SCH (21:42)
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
[2022-02-20 09:05] VITALS: BP 154/72
[2022-02-20] MEDS: SPIRONOLACTONE 25 MG TAB PO SCH (09:42)
[2022-02-20] MEDS: LISINOPRIL 20 MG TAB PO SCH (09:42)
[2022-02-20] MEDS: GABAPENTIN 300 MG CAP PO SCH (09:42)
[2022-02-20] MEDS: CALCIUM CARBONATE 1250 MG TAB PO SCH (09:42)
[2022-02-20] MEDS: FUROSEMIDE 40 MG TAB PO SCH (09:42)
[2022-02-20] MEDS: METOPROLOL TARTRATE 25 MG TAB PO SCH (09:42)
[2022-02-20] MEDS: FAMOTIDINE 20 MG TAB PO SCH (09:42)
[2022-02-20] MEDS: INSULIN NPH, HUMAN 100 UNIT/1 ML SUB-Q SCH (09:43)
[2022-02-20] MEDS: HEPARIN 5,000 UNIT/1 ML VIAL SUB-Q SCH (09:43)
[2022-02-20] MEDS: INSULIN LISPRO 100 UNIT/ML SUB-Q SCH ×2 (09:43→13:29)
== END 2022-02-20 13:32 | disposition home or self-care (01) | DRG 291 ==
LOC: ED 10:21 → 4A 17:48
PROVIDERS: ADMIT Internal Medicine; ATTEND Student in an Organized Health Care Education/Training Program
DX: I11.0 Hypertensive heart disease with heart failure (principal); I50.43 Acute on chronic combined systolic (congestive) and diastolic (congestive) heart failure; E43 Unspecified severe protein-calorie malnutrition; E11.40 Type 2 diabetes mellitus with diabetic neuropathy, unspecified; E11.65 Type 2 diabetes mellitus with hyperglycemia; E66.01 Morbid (severe) obesity due to excess calories; D64.9 Anemia, unspecified; G43.909 Migraine, unspecified, not intractable, without status migrainosus; I42.9 Cardiomyopathy, unspecified; Z68.38 Body mass index [BMI] 38.0-38.9, adult; Z83.3 Family history of diabetes mellitus
CPT/HCPCS: 36415; 70488; 71046; 78452; 80048; 80053; 81001; 82803; 82962; 83036; 83880; 84145; 84484; 85014; 85018; 85025; 93005; 93017; 93306; 96374; G0378; J2354; Q9967; A9502; C8929; J0456; J0696; J1644; J1815; J1940; J1956; J2270; J2405; J2765; J2785

== ENCOUNTER 2022-03-24 08:15 | Emergency (ER) | payer SELFPAY ==
--- NOTE | 2022-03-24 10:22 | XRay Report ---
CHEST 1 VIEW INDICATION: Dyspnea. COMPARISON: 02/16/2022 FINDINGS: Support devices: None. Heart: Enlarged, unchanged. Lungs/Pleura: Predominantly perihilar and basilar opacities have developed and there may be a small r ight pleural effusion. IMPRESSION: 1. Possible mild congestive failure. Signer Name: Sheldon Shultz MD Signed: 03/24/2022 10:17 AM Workstation Name: [id number]
[2022-03-24 11:01] LABS: Basophils # (Auto) 0.1 K/mm3 (0.0-0.1); Basophils % (Auto) 0.7 % (0.0-1.8); Eosinophils # (Auto) 0.3 K/mm3 (0.0-0.4); Eosinophils % (Auto) 3.3 % (0.0-4.3); Hemoglobin 6.8 gm/dl (10.1-14.3); Lymphocytes # (Auto) 0.7 K/mm3 (1.2-5.4); Lymphocytes % (Auto) 6.8 % (13.4-35.0); Mean Corpuscular HGB Conc 31 % (30-34); Mean Corpuscular Volume 76 fl (79-97); Monocytes # (Auto) 0.7 K/mm3 (0.0-0.8); Monocytes % (Auto) 7.2 % (0.0-7.3); Platelet Count 382 K/mm3 (140-440); Red Cell Distribution Width 17.5 % (13.2-15.2)
[2022-03-24 11:07] LABS: Alanine Aminotransferase 33 units/L (7-56); BUN/Creatinine Ratio 29; Blood Urea Nitrogen 26 mg/dL (7-17); Calcium 8.5 mg/dL (8.4-10.2); Hemolysis Index 2
[2022-03-24] MEDS ORDERED: FUROSEMIDE 40 MG/4 ML INJ IV ONE (11:23)
[2022-03-24] MEDS ORDERED: LISINOPRIL 20 MG TAB PO ONE (12:43)
[2022-03-24] MEDS ORDERED: SPIRONOLACTONE 25 MG TAB PO ONE (12:43)
[2022-03-24] MEDS ORDERED: METOPROLOL TARTRATE 50 MG TAB PO ONE (12:43)
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
--- NOTE | 2022-03-24 13:10 | Consultation ---
History of Present Illness - Reason for Consult Consult date: 03/24/22 swelling Requesting physician: BLAYNE ARNOLD - History of Present Illness 41 YO Female with Obesity, HTN, Metabolic Syndrome, left upper extremity neuropathy, HFPEF presents ED for evaluation. Prior admission on 02/16/2022 reviewed. Patient states that she has experienced generalized edema and s hortness of breath over the past 3 days with worsening symptoms over the same timeframe. Patient acknowledges medication compliance but upon further questioning confirms that she has no medication remaining at her home from her discharge on 02/20/2022. Patient found to have hypertension with concomitant heart failure is suspected secondary to medication noncompliance. Patient treated with resumption of diuretic therapy as well as as oral antihypertensive therapy. Patient symptoms resolved with therapy. Patient found to be cocaine positive on urine drug screen. Patient medically optimized and back to usual state of health. Patient counseled regarding abstinence from cocaine. Patient instructed to follow-up as outpatient for drug dependence counseling. Past History Past Medical History: heart failure, hypertension, other (See HPI) Past Surgical History: Other (Left arm surgery) Social history: single. denies: smoking, alcohol abuse, prescription drug abuse Family history: diabetes, hypertension Medications and Allergies Allergies Allergy/AdvReac Type Severity Reaction Status Date / Time acetaminophen [From Lortab] Allergy Anaphylaxis Verified 01/09/22 09:21 hydrocodone [From Lortab] Allergy Anaphylaxis Verified 01/09/22 09:21 Home Medications Medication Instructions Recorded Confirmed Last Taken Type traZODone [Desyrel] 50 mg PO QHS 02/16/22 02/16/22 1 Day Ago History ~02/15/22 Furosemide [Lasix TAB] 40 mg PO QDAY #30 tablet 02/20/22 Unknown Rx Gabapentin 300 mg PO TID #90 capsule 02/20/22 Unknown Rx Insulin NPH, Human [NovoLIN N] 15 unit SUB-Q BIDDIAB #1000 units 02/20/22 Unknown Rx Metoprolol [Lopressor TAB] 25 mg PO BID #60 tablet 02/20/22 Unknown Rx Scopolamine [Transderm-Scop] 1 each TD Q3D #10 patch 02/20/22 Unknown Rx Spironolactone [Aldactone] 25 mg PO QDAY #30 tablet 02/20/22 Unknown Rx lisinopriL [Lisinopril] 20 mg PO BID #60 tab 02/20/22 Unknown Rx lisinopriL [Zestril TAB] 20 mg PO BID #60 tablet 02/20/22 Unknown Rx Review of Systems Constitutional: no weight loss, no fever, no chills Ears, nose, mouth and throat: no ear pain, no decreased hearing, no nose pain Breasts: no change in shape, no swelling Cardiovascular: shortness of breath, no chest pain, no orthopnea, no palpitations Respiratory: no cough, no cough with sputum, no excessive sputum, no hemoptysis Gastrointestinal: no abdominal pain, no nausea, no vomiting, no constipation, no change in bowel habits Genitourinary Female: no pelvic pain, no flank pain, no dysuria, no urinary frequency, no urgency Rectal: no pain, no incontinence, no bleeding Musculoskeletal: no neck stiffness, no shooting arm pain, no low back pain, no shooting leg pain Integumentary: no rash, no redness, no sores, no wounds, no boils Neurological: no head injury, no weakness, no parathesias, no tingling, no syncope Psychiatric: no anxiety, no change in appetite, no disorientation Endocrine: no cold intolerance, no polyphagia, no polydipsia, no polyuria, no nocturia Hematologic/Lymphatic: no easy bruising, no easy bleeding Allergic/Immunologic: no urticaria Exam - Constitutional Vitals: Temp Pulse Resp BP Pulse Ox 97.6 F 85 25 H 206/105 97 03/24/22 09:30 03/24/22 12:47 03/24/22 12:47 03/24/22 12:47 03/24/22 12:47 General appearance: Present: no acute distress, well-nourished, obese - EENT Eyes: Present: PERRL ENT: hearing intact, clear oral mucosa - Neck Neck: Present: supple, normal ROM - Respiratory Respiratory effort: normal Respiratory: bilateral: CTA - Cardiovascular Heart Sounds: Present: S1 & S2. Absent: rub, click - Extremities Extremities: pulses symmetrical, No edema Extremity abnormal: edema Peripheral Pulses: within normal limits - Abdominal General gastrointestinal: Present: soft, non-tender, non-distended, normal bowel sounds Female genitourinary: Present: normal - Integumentary Integumentary: Present: clear, warm, dry - Musculoskeletal Musculoskeletal: gait normal, strength equal bilaterally - Psychiatric Psychiatric: appropriate mood/affect, intact judgment & insight - Neurologic Neurologic: CNII-XII intact, moves all extremities Results - Labs CBC & Chem 7: 03/24/22 10:30 03/24/22 10:30 Labs: Abnormal lab results 03/24/22 03/24/22 Range/Units 10:30 10:30 RBC 2.90 L (3.65-5.03) M/mm3 Hgb 6.8 L (10.1-14.3) gm/dl Hct 22.0 L (30.3-42.9) % MCV 76 L (79-97) fl MCH 24 L (28-32) pg RDW 17.5 H (13.2-15.2) % Lymph % (Auto) 6.8 L (13.4-35.0) % Lymph # (Auto) 0.7 L (1.2-5.4) K/mm3 Seg Neutrophils % 82.0 H (40.0-70.0) % Seg Neutrophils # 8.4 H (1.8-7.7) K/mm3 Chloride 107.1 H (98-107) mmol/L Carbon Dioxide 20 L (22-30) mmol/L BUN 26 H (7-17) mg/dL Glucose 248 H (65-100) mg/dL NT-Pro-B Natriuret Pep 5723 H (0-450) pg/mL Albumin 3.0 L (3.9-5) g/dL Assessment and Plan - Patient Problems (1) Uncontrolled hypertension Status: Acute Plan to address problem: Patient resumed on prehospital antihypertensive therapy with normalization of blood pressure. Patient discharged home instructed to follow-up with primary care physician within 3 to 5 days with blood pressure log. Patient found to be cocaine positive. Patient instructed to abstain from cocaine use. (2) CHF (congestive heart failure) Status: Acute Qualifiers: Heart failure chronicity: chronic Plan to address problem: medication compliance, daily weight, outpatient cardiology follow-up. Strict I's/O, low-sodium diet. Blood pressure control. (3) Noncompliance with medication regimen Status: Acute Plan to address problem: Patient counseled regarding noncompliance with medication. Patient informed of increased risk of worsening symptoms with continued noncompliance. Patient acknowledges understanding instructions. (4) Noncompliance with dietary restriction Status: Acute Plan to address problem: Patient counseled regarding low-sodium diet, daily weight, low-cholesterol diet, increase physical activity at discharge, and weight reduction. (5) Obesity hypoventilation syndrome Status: Acute Plan to address problem: Balanced diet, regular physical activity at discharge, outpatient pulmonary follow-up for sleep study.
[2022-03-24 13:51] LABS: Amphetamine Screen,Urine Negative; Benzodiazepines Screen,Urine Negative; Cannabinoid Screen,Urine Negative; Methadone Screen,Urine Negative; Opiate Screen,Urine Negative
[2022-03-24] MEDS: SODIUM CHLORIDE 0.9% 500 ML 500 ML IV ONE ×2 (13:56→16:31)
[2022-03-24 14:07] LABS: Cocaine Screen,Urine Positive
--- NOTE | 2022-03-24 15:38 | Vascular Lab Report ---
DUPLEX DOPPLER UPPER EXTREMITY VENOUS, LEFT INDICATION / CLINICAL INFORMATION: Pain and swelling in left upper extremity. TECHNIQUE: Duplex doppler imaging was performed through the veins of the left upper extremity using v enous compression and other maneuvers. COMPARISON: None available. FINDINGS: LEFT INTERNAL JUGULAR VEIN: Negative. LEFT SUBCLAVIAN VEIN: Negative. LEFT AXILLARY VEIN: Negative. LEFT BRACHIAL VEIN: Negative. LEFT FOREARM VEINS: Negative. LEFT BASILIC VEIN (SUPERFICIAL): Negative. ADDITIONAL FINDINGS: None. IMPRESSION: 1. No sonographic evidence for DVT. Signer Name: Reji Worrell MD Signed: 03/24/2022 3:33 PM Workstation Name: [id number]
[2022-03-24 16:53] VITALS: BP 152/82
== END 2022-03-24 17:16 | disposition home or self-care (01) ==
LOC: ED 08:15
DX: R06.00 Dyspnea, unspecified (principal); M79.602 Pain in left arm; D64.9 Anemia, unspecified; I11.0 Hypertensive heart disease with heart failure; I50.9 Heart failure, unspecified; E11.9 Type 2 diabetes mellitus without complications; K21.9 Gastro-esophageal reflux disease without esophagitis; Z91.09 Other allergy status, other than to drugs and biological substances; Z79.899 Other long term (current) drug therapy
CPT/HCPCS: 36415; 71045; 80053; 80307; 82140; 83880; 84484; 85025; 86850; 86900; 86901; 86920; 93005; 93971; 96374; 99284; J1940; J7040

== ENCOUNTER 2022-06-04 10:40 | Emergency (ER) | payer SELFPAY ==
[2022-06-04] MEDS ORDERED: cloNIDine 0.2 MG TAB PO ONE (11:30)
--- NOTE | 2022-06-04 11:31 | Event Note ---
ED Screening Note ED Screening Note: 42 y/o female with pmh of obesity, CHF, CAD, Accelerated HTN, Cocaine abuse, medication non compliance presents c/o of chest pain , sob, weight gain, orthorpnea for the last few days associated with a cough. This initial assessment/diagnostic orders/clinical plan/treatment(s) is/are subject to change based on patients health status, clinical progression and re- assessment by fellow clinical providers in the ED. Further treatment and workup at subsequent clinical providers discretion. Patient/guardian urged not to elope from the ED as their condition may be serious if not clinically assessed and managed. Initial orders include: clonidine 0.2 due to current bp of 254/134 CHF AND CP work up.
[2022-06-04] MEDS ORDERED: ALBUTEROL 2.5 MG/3 ML NEBU IH ONE (11:49)
[2022-06-04] MEDS ORDERED: FUROSEMIDE 40 MG/4 ML INJ IV ONE (11:49)
[2022-06-04] MEDS ORDERED: IPRATROPIUM 0.02% NEBU 2.5 ML IH ONE (11:49)
--- NOTE | 2022-06-04 12:10 | XRay Report ---
CHEST 1 VIEW 06/04/2022 11:48 AM INDICATION / CLINICAL INFORMATION: Dyspnea. COMPARISON: 03/24/22. FINDINGS: SUPPORT DEVICES: None. HEART / MEDIASTINUM: There is mild cardiomegaly with prominence the central pulmonary vasculature. LUNGS / PLEURA: There is patchy pleuroparenchymal opacity in the right hemithorax, more prominent inf eriorly, similar to the prior study. The left lung is clear. No pneumothorax. ADDITIONAL FINDINGS: No significant additional findings. IMPRESSION: Mild to moderate patchy pleuroparenchymal opacity in the right hemithorax is similar to t he prior exam and may be recurrent or chronic. Signer Name: Cody Miranda MD Signed: 06/04/2022 12:05 PM Workstation Name: [id number]
[2022-06-04 12:48] LABS: Basophils # (Auto) 0.1 K/mm3 (0.0-0.1); Eosinophils # (Auto) 0.2 K/mm3 (0.0-0.4); Eosinophils % (Auto) 3.9 % (0.0-4.3); Hematocrit 26.6 % (30.3-42.9); Hemoglobin 8.2 gm/dl (10.1-14.3); Lymphocytes # (Auto) 0.9 K/mm3 (1.2-5.4); Lymphocytes % (Auto) 14.8 % (13.4-35.0); Mean Corpuscular HGB Conc 31 % (30-34); Mean Corpuscular Volume 73 fl (79-97); Monocytes # (Auto) 0.4 K/mm3 (0.0-0.8); Monocytes % (Auto) 6.2 % (0.0-7.3); Platelet Count 333 K/mm3 (140-440); Red Blood Count 3.65 M/mm3 (3.65-5.03); Red Cell Distribution Width 23.2 % (13.2-15.2)
[2022-06-04 12:59] LABS: INR 1.04 (0.87-1.13)
[2022-06-04] MEDS ORDERED: NITROGLYCERIN DRIP 50 MG/250 ML BOTTLE IV SCH (13:00)
[2022-06-04 13:09] LABS: Creatine Kinase MB 3.6 ng/mL (0.0-4.0)
[2022-06-04 13:14] LABS: Alanine Aminotransferase 18 units/L (7-56); Albumin 2.9 g/dL (3.9-5); BUN/Creatinine Ratio 20; Blood Urea Nitrogen 18 mg/dL (7-17); Calcium 8.6 mg/dL (8.4-10.2); Hemolysis Index 2
[2022-06-04] MEDS ORDERED: MORPHINE 4 MG/1 ML INJ IV ONE (13:16)
[2022-06-04 13:17] LABS: ABG Base Excess -4.6 mmol/L (-2.0-3.0); ABG HCO3 19.2 mmol/L (20.0-26.0); ABG Methemoglobin 0.5 % (0.0-1.5); ABG Oxygen Saturation 95.5 % (95.0-99.0); ABG PH 7.41 pH Units (7.350-7.450)
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
[2022-06-04] MEDS ORDERED: FUROSEMIDE 40 MG/4 ML INJ IV SCH (14:55)
[2022-06-04] MEDS ORDERED: SODIUM BICARB 8.4% 50 MEQ/50 ML SYRINGE IV SCH (15:23)
--- NOTE | 2022-06-04 15:25 | Consultation ---
History of Present Illness - Reason for Consult Consult date: 06/04/22 Medical management Requesting physician: ROSALINA THAKKAR - History of Present Illness 42 YO Female with Obesity, Cocaine Dependence, Medication Noncompliance, HTN, HFPEF, DM, GERD presents to ED for evaluation. . Prior admission on 02/16/2022 reviewed. Patient states that she has experienced generalized edema and shortness of breath over the past 3 days with worsening symptoms over the same timeframe. Patient acknowledges medication compliance, dietary noncompliance. Patient found to have accelerated hypertension suspected secondary to medication noncompliance. Patient treated with resumption of diuretic therapy as well as as oral antihypertensive therapy. Patient symptoms resolved with therapy. Patient found to be cocaine positive on urine drug screen. Patient medically optimized and back to usual state of health. Patient counseled regarding abstinence from cocaine. Patient inst ructed to follow-up as outpatient for drug dependence counseling. Past History Past Medical History: diabetes, GERD, hypertension Past Surgical History: Other ( Left arm, salpingectomy) Social history: single. denies: smoking, alcohol abuse, prescription drug abuse Family history: diabetes, hypertension Medications and Allergies Allergies Allergy/AdvReac Type Severity Reaction Status Date / Time acetaminophen [From Lortab] Allergy Anaphylaxis Verified 01/09/22 09:21 hydrocodone [From Lortab] Allergy Anaphylaxis Verified 01/09/22 09:21 Home Medications Medication Instructions Recorded Confirmed Last Taken Type traZODone [Desyrel] 50 mg PO QHS 02/16/22 02/16/22 1 Day Ago History ~02/15/22 Scopolamine [Transderm-Scop] 1 each TD Q3D #10 patch 02/20/22 Unknown Rx Furosemide [Lasix TAB] 40 mg PO QDAY #30 tablet 06/04/22 Unknown Rx Gabapentin 300 mg PO TID #90 capsule 06/04/22 Unknown Rx Insulin NPH, Human [NovoLIN N] 15 unit SUB-Q BIDDIAB #1000 units 06/04/22 Unknown Rx Metoprolol [Lopressor TAB] 25 mg PO BID #60 tablet 06/04/22 Unknown Rx Spironolactone [Aldactone] 25 mg PO QDAY #30 tablet 06/04/22 Unknown Rx lisinopriL [Lisinopril] 20 mg PO BID #60 tab 06/04/22 Unknown Rx lisinopriL [Zestril TAB] 20 mg PO BID #60 tablet 06/04/22 Unknown Rx Active Meds: Active Medications Furosemide (Furosemide 40 Mg/4 Ml Inj) 40 mg IV ONCE VIRAJ Stop: 06/04/22 23:00 Labetalol HCl (Labetalol 20 Mg/4 Ml Inj) 20 mg IV ONCE ONE Stop: 06/04/22 16:01 Sodium Bicarbonate (Sodium Bicarb 8.4% 50 Meq/50 Ml Syringe) 50 meq IV ONCE ONE Stop: 06/04/22 15:24 Review of Systems Constitutional: no weight loss, no weight gain, no fever, no chills Ears, nose, mouth and throat: no ear pain, no tinnitis, no decreased hearing, no nose pain, no nasal congestion, no nasal discharge Breasts: no change in shape, no mass Cardiovascular: other (Chest tightness), no chest pain, no orthopnea, no palpitations, no rapid/irregular heart beat Respiratory: no cough, no excessive sputum Gastrointestinal: other (Abdominal discomfort), no abdominal pain, no vomiting, no diarrhea, no constipation Genitourinary Female: no pelvic pain, no flank pain, no dysuria, no urinary frequency, no urgency Rectal: no pain, no incontinence, no bleeding Musculoskeletal: no neck stiffness, no neck pain, no shooting arm pain, no arm numbness/tingling, no low back pain, no shooting leg pain Integumentary: no rash, no pruritis, no redness, no sores Neurological: no head injury, no transient paralysis, no weakness, no parathesias, no numbness, no syncope, no tremors Psychiatric: no anxiety, no change in sleep habits, no sleep disturbances, no insomnia, no hypersomnia, no change in libido, no disorientation Endocrine: no cold intolerance, no excessive thirst, no polydipsia, no nocturia, no excessive sweating Hematologic/Lymphatic: no easy bruising, no easy bleeding Allergic/Immunologic: no urticaria, no allergic rhinitis, no wheezing (Low) Exam - Constitutional Vitals: Temp Pulse Resp BP Pulse Ox 98.8 F 75 24 194/98 93 06/04/22 11:51 06/04/22 14:01 06/04/22 14:01 06/04/22 14:01 06/04/22 14:01 General appearance: Present: no acute distress - EENT Eyes: Present: PERRL ENT: hearing intact, clear oral mucosa - Neck Neck: Present: supple, normal ROM - Respiratory Respiratory effort: normal Respiratory: bilateral: CTA - Cardiovascular Heart Sounds: Present: S1 & S2. Absent: rub, click - Extremities Extremities: pulses symmetrical, No edema Peripheral Pulses: within normal limits - Abdominal General gastrointestinal: Present: soft, non-tender, non-distended, normal bowel sounds Female genitourinary: Present: normal - Integumentary Integumentary: Present: clear, warm, dry - Musculoskeletal Musculoskeletal: gait normal, strength equal bilaterally - Psychiatric Psychiatric: appropriate mood/affect, intact judgment & insight - Neurologic Neurologic: CNII-XII intact, moves all extremities Results - Labs CBC & Chem 7: 06/04/22 12:18 06/04/22 12:18 Labs: Abnormal lab results 06/04/22 06/04/22 06/04/22 Range/Units 12:18 12:18 12:18 Hgb 8.2 L (10.1-14.3) gm/dl Hct 26.6 L (30.3-42.9) % MCV 73 L (79-97) fl MCH 22 L (28-32) pg RDW 23.2 H (13.2-15.2) % Lymph # (Auto) 0.9 L (1.2-5.4) K/mm3 Seg Neutrophils % 74.1 H (40.0-70.0) % ABG pO2 (80.0-90.0) mm Hg ABG HCO3 (20.0-26.0) mmol/L ABG Base Excess (-2.0-3.0) mmol/L ABG Hemoglobin (12.0-16.0) gm/dl Oxyhemoglobin (95.0-99.0) % Chloride 111.9 H (98-107) mmol/L Carbon Dioxide 19 L (22-30) mmol/L BUN 18 H (7-17) mg/dL Glucose 225 H (65-100) mg/dL Total Creatine Kinase (30-135) units/L NT-Pro-B Natriuret Pep 8131 H (0-450) pg/mL Albumin 2.9 L (3.9-5) g/dL 06/04/22 06/04/22 Range/Units 12:18 13:00 Hgb (10.1-14.3) gm/dl Hct (30.3-42.9) % MCV (79-97) fl MCH (28-32) pg RDW (13.2-15.2) % Lymph # (Auto) (1.2-5.4) K/mm3 Seg Neutrophils % (40.0-70.0) % ABG pO2 75.0 L (80.0-90.0) mm Hg ABG HCO3 19.2 L (20.0-26.0) mmol/L ABG Base Excess -4.6 L (-2.0-3.0) mmol/L ABG Hemoglobin 10.4 L (12.0-16.0) gm/dl Oxyhemoglobin 93.0 L (95.0-99.0) % Chloride (98-107) mmol/L Carbon Dioxide (22-30) mmol/L BUN (7-17) mg/dL Glucose (65-100) mg/dL Total Creatine Kinase 172 H (30-135) units/L NT-Pro-B Natriuret Pep (0-450) pg/mL Albumin (3.9-5) g/dL Assessment and Plan - Patient Problems (1) Accelerated hypertension Current Visit: No Status: Acute Plan to address problem: Patient resumed on oral antihypertensive therapy with normalization of blood pressure. Patient counseled regarding medication noncompliance. Patient struck to follow-up with primary care physician within 3 to 5 days with blood pressure log. (2) Noncompliance with dietary restriction Current Visit: No Status: Acute Plan to address problem: Patient counseled regarding dietary noncompliance. Patient acknowledges understanding instructions. (3) Noncompliance with medication regimen Current Visit: No Status: Acute Plan to address problem: Patient counseled regarding medication noncompliance. Patient knowledges understanding instructions. (4) Advance care planning Current Visit: No Status: Acute Plan to address problem: Disease education done, care plan discussed, diagnosis discussed, prognosis discussed, patient acknowledges understanding agreement care plan, +30 minutes. (5) Preventative health care Current Visit: Yes Status: Acute Plan to address problem: Patient counseled regarding risk factor reduction, weight reduction, compliance with low-sodium diet, compliant with medication, outpatient follow-up with primary care physician for all age and risk factor appropriate screening test. +30 minutes.
[2022-06-04] MEDS ORDERED: amLODIPine 5 MG TAB PO ONE (18:45)
[2022-06-04] MEDS ORDERED: LISINOPRIL 20 MG TAB PO ONE (18:45)
[2022-06-04 20:21] LABS: Amphetamine Screen,Urine Negative; Benzodiazepines Screen,Urine Negative; Cannabinoid Screen,Urine Negative; Methadone Screen,Urine Negative; Mucus,Urine FEW /HPF; Opiate Screen,Urine Negative
[2022-06-04 20:27] LABS: Bilirubin,Urine Negative (Negative); Color,Urine Yellow (Yellow)
[2022-06-04 20:28] LABS: Blood,Urine Large (Negative); Urobilinogen,Urine < 2.0 mg/dL (<2.0)
[2022-06-04] MEDS ORDERED: hydrALAZINE 20 MG/1 ML INJ IV ONE (20:35)
[2022-06-04 20:42] LABS: Cocaine Screen,Urine PRESUMPTIVE POSITIVE
[2022-06-04] MEDS ORDERED: HYDROmorphone 0.5 MG/0.5 ML INJ IM ONE (21:38)
[2022-06-04 22:35] VITALS: BP 167/90
--- NOTE | 2022-06-06 10:00 | Electrocardiograph Report ---
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
== END 2022-06-04 22:45 | disposition home or self-care (01) ==
LOC: ED 10:40
DX: R06.02 Shortness of breath (principal); J81.1 Chronic pulmonary edema; I11.0 Hypertensive heart disease with heart failure; I50.9 Heart failure, unspecified; I16.1 Hypertensive emergency; E11.9 Type 2 diabetes mellitus without complications; K21.9 Gastro-esophageal reflux disease without esophagitis; Z91.09 Other allergy status, other than to drugs and biological substances; Z79.899 Other long term (current) drug therapy
CPT/HCPCS: 36415; 71045; 80053; 80307; 81001; 82140; 82550; 82553; 82803; 83735; 83880; 84484; 85025; 85610; 93005; 94640; 96361; 96372; 96374; 96375; 99284; J1170; J1940; J2270; J3490; 94644